=== PATIENT | female | born 1995 | race Caucasian/White ===

== ENCOUNTER 2019-03-21 05:53 | Inpatient (IN) ==
--- NOTE | 2019-03-21 06:18 | PROVIDER DOCUMENTATION ---
HPI-Neurological Disorder - General Chief Complaint: Seizure Stated Complaint: seizure Time Seen by Provider: 03/21/19 06:02 Source: family Unable to obtain history due to:: other (CP) Allergies/Adverse Reactions: Patient Allergies Allergy/AdvReac Type Severity Reaction Status Date / Time Iodinated Contrast- Oral and AdvReac RASH Verified 03/21/19 17:14 IV Dye lorazepam [From Ativan] AdvReac VOMITING Verified 03/21/19 07:06 morphine AdvReac SHORTNESS Verified 03/21/19 06:09 OF BREATH Home Medications: Home Medication List Medication Instructions Recorded Confirmed Last Taken Type Diazepam 2.5 mg PO HS 03/21/19 03/21/19 Unknown History Diazepam 10 mg Rectal Gel [Diastat 5 mg NM DIRECTED PRN PRN 03/21/19 03/21/19 Unknown History 10 mg Rectal Gel] Lamotrigine 300 mg PO BID 03/21/19 03/21/19 Unknown History Medroxyprogesterone Acetate 150 mg IM DIRECTED 03/21/19 03/21/19 Unknown History [Depo-Provera] - History of Present Illness-Neuro Nature of Presenting Problem: Patient has had a series of seizures tonight that is not unheard of, but unusual for her. SHe has a history of seizures. Mother is concerned about possible aspiration and the supposed cause of the seizure. It is almost time for her depomedrol shot that helps calm her brain. Severity: reports: moderate Onset/Duration: reports: just prior to arrival Timing: reports: gone now Context: reports: seizure activity Associated Symptoms: reports: seizures Similar Symptoms Previously?: Yes Recently seen or treated by another doctor?: No - Seizure First time to have a seizure?: No Witnessed seizure?: Yes How many seizure episodes?: 1 Episode Frequency: occasional episodes Status Epilepticus: No Character of Seizure: reports: generalized shaking all over Seizure related injury: none Review of Systems - Adult - REVIEW OF SYSTEMS - ADULT Constitutional: reports: no symptoms reported Eyes: reports: no symptoms reported Ears, Nose, Mouth & Throat: reports: no symptoms reported Cardiovascular: reports: no symptoms reported Respiratory: reports: no symptoms reported Gastrointestinal: reports: no symptoms reported Genitourinary: reports: no symptoms reported Musculoskeletal: reports: no symptoms reported Integumentary: reports: no symptoms reported Neurological: reports: see HPI, seizure Psychiatric: reports: no symptoms reported Past History - Adult - PAST MEDICAL HISTORY-ADULT Review of Records: reports: Old Records Reviewed, Nursing Assessment Review Physical Exam- Neurological - Physical Exam-Neuro Initial Vital Signs Reviewed: Yes General Appearance: no apparent distress, other (sleepy and post ictal) Eye Exam: bilateral eye: normal inspection, PERRL HENMT: normocephalic/atraumatic, moist mucous membranes Head Injury: no evidence of injury Neck: non-tender, full range of motion Respiratory: chest non-tender, normal breath sounds, crackles. negative: respiratory distress, decreased breath sounds, rhonchi, stridor, wheezing Cardiovascular: normal peripheral pulses, regular rate, rhythm Abdominal Exam: normal bowel sounds, non tender Lymphatic: no adenopathy Extremity: other (multiple contractures from CP) Integumentary: normal color, normal turgor Progress - PLAN OF CARE/RESULTS Progress/Plan/Lab Results: assumed care from dr. guzman, 23 y/o female cerebral palsy on exam, nasal flaring, increased work of breathing sat down bedside prolonged conversation with very helpful family in regards to patients baselin on 3 liters 02 here, no o2 requirement at home upon exam nasal flaring lungs with course rhonchi, no wheeze will add cxr, blood culture, lactate and nebs to current orders ddx includes but not limited to sepsis, pneumonia, aspiration anticipate admission ordered fluids and appropriate antibiotics due to patients 29kg weight, I confirmed with pharmacy the dose of zosyn Result Diagrams: 03/22/19 04:00 03/22/19 04:00 - EKG 1 Time of EKG reading by physician:: 06:40 EKG Read and Signed by:: Nancy Guzman EKG Interpretation (*Must complete 3 of following elements*): Abnormal Rate: 115 Rhythm: nsr QRS: normal NM Interval: normal ST Wave: normal Comments: rvh - XRAY 1 XRAY Study: Chest (EXAM: CHEST-PORTABLE 03/21/2019 HISTORY: cough, tachypnea TECHNIQUE: AP portable at 0718 COMMENT: There is severe rotoscoliosis of the lower thoracic spine with convexity to the left. The patient is rotated slightly to the right. There is slightly increased parahilar opacity on the left compared to 08/13/2014. The possibility of bronchopneumonia on the left cannot be excluded. IMPRESSION: Bronchopneumonia left upper and lower lobe. Electronically signed by Go Vega 03/21/2019 7:23 AM 03/21/19722 Interpreting Physician: oG Vega MD Dictated Date/Time: 03/21/19720 cc: Ankit Bell DO; Bernard Gao MD) - CONSULTS/PCP/HOSPITALIST Notification #1 *Consult/PCP/Hospitalist*: nneka Time Discussed: 07:45 Consult Disposition: Will see in ED Departure - Departure Date of Disposition Decision: 03/21/19 Time of Disposition Decision: 07:45 DIAGNOSIS: Hypoxia, Tachypnea Pneumonia Qualifiers: Pneumonia type: due to unspecified organism Laterality: left Lung location: unspecified part of lung Qualified Code(s): J18.9 - Pneumonia, unspecified organism Disposition: ADMITTED INPATIENT 09 Certified Medical Emergency: Emergent Condition: Stable - Critical Care Note This patient required my direct & personal management of CC.: Yes Total Time (mins): 40 Critical Care Statement: This patient required my direct personal management to treat or rule out processes, the absence of which, could potentiallly result in sudden, clinically significant life or limb threatening deterioration. Attestation - Physician/ YNES Attestation Patient care was provided by Advanced Practice Provider:: No The physician spent face to face time with patient:: No Advanced Practice Provider documentation review:: Supervising physician onsite and consulted in the evaluation and care of this patient. The physician did not have a face to face encounter with the patient.
[2019-03-21 06:50] LABS: URINE SOURCE CATH
[2019-03-21 06:55] LABS: UR EPITHELIAL CELLS >10 /HPF (<10); URINE BACTERIA 1+ /HPF; URINE RBC TNTC /HPF (<10); URINE WBC <10 /HPF (<10)
[2019-03-21 06:56] LABS: BILIRUBIN URINE NEGATIVE (NEGATIVE); BLOOD URINE MODERATE (NEGATIVE); COLOR YELLOW; GLUCOSE URINE 500 mg/dL (NEGATIVE); HEMATOCRIT 43.5 % (37.0-47.0); HEMOGLOBIN 13.8 g/dL (12.0-16.0); KETONE URINE 60 mg/dL (NEGATIVE); LEUKOCYTES URINE NEGATIVE (NEGATIVE); LYMPH# 0.19 X1000 (1.2-3.4); LYMPH% 3.7 % (20.5-51.1); MCH 26.5 PG (27-31); MCHC 31.7 g/dL (33-37); MCV 83.5 FL (81-99); MONO# 0.23 X1000 (0.11-0.59); MONO% 4.5 % (1.7-9.3); MPV 9.5 FL (7.4-10.4); NEUT# 4.68 X1000 (1.4-6.5); NEUT% 91.8 % (42.2-75.2); NITRITE URINE NEGATIVE (NEGATIVE); PH URINE 6.5; PLT 264 X1000 (130-400); PROTEIN URINE 100 mg/dL (NEGATIVE); RBC 5.21 XMIL (4.2-5.4); RDW 14.9 % (11.5-14.5); TURBIDITY URINE HAZY (CLEAR); UROBILINOGEN URINE 8 mg/dL (NORMAL)
[2019-03-21 07:06] LABS: AGAP 15; ALB/GLOB RATIO 1.3; ALBUMIN 4.4 g/dL (3.5-5.0); ALKALINE PHOSPHATASE 47 U/L (32-104); BUN 18 mg/dL (8-22); CHLORIDE 104 mmol/L (98-107); COSMO 290; CREATININE 0.5 mg/dL (0.5-0.9); ESTIMATED GFR > 60; GLUCOSE 192 mg/dL (70-104); GOT 16 U/L (10-30); GPT 18 U/L (10-36); SODIUM 142 mmol/L (136-145); TCO2 23 mmol/L (25-35); TOTAL BILIRUBIN 0.47 mg/dL (0.20-1.00); TOTAL PROTEIN 7.7 g/dL (6.3-8.3)
[2019-03-21] MEDS ORDERED: DUONEB (A & A) INH ONE (07:12)
--- NOTE | 2019-03-21 07:25 | Diag Imaging Result Doc PS360 ---
EXAM: CHEST-PORTABLE 03/21/2019 HISTORY: cough, tachypnea TECHNIQUE: AP portable at 0718 COMMENT: There is severe rotoscoliosis of the lower thoracic spine with convexity to the left. The patient is rotated slightly to the right. There is slightly increased parahilar opacity on the left compared to 08/13/2014. The possibility of bronchopneumonia on the left cannot be excluded. IMPRESSION: Bronchopneumonia left upper and lower lobe. Electronically signed by Go Vega 03/21/2019 7:23 AM
[2019-03-21] MEDS ORDERED: ZOSYN 3.375 GM in NS 50 ML IV ONE (07:38)
[2019-03-21 07:52] LABS: BE -0.5 mmoll (-2.0-2.0); BLOOD TYPE VENOUS; HCO3-(ACT) 24.5 mmoll (22-27); PCO2(98.6) 34 mmHg (40-60); PO2(98.6) 66 mmHg (30-55); SAMPLE BLOOD; SAO2 96.6 % (40.0-85.0); pH(98.6) 7.44 (7.32-7.43)
--- NOTE | 2019-03-21 07:52 | EKG Report ---
Test Performed on : 03/21/2019 06:07:26 AM Test Reason : HT Blood Pressure : / mmHG Vent. Rate : 115 BPM Atrial Rate : 115 BPM P-R Int : 132 ms QRS Dur : 082 ms QT Int : 248 ms P-R-T Axes : 062 145 046 degrees QTc Int : 343 ms Sinus tachycardia. Possible Left atrial enlargement Right axis deviation Possible Right ventricular hypertrophy Nonspecific T wave abnormality Abnormal ECG No previous ECGs available Unconfirmed Result
[2019-03-21] MEDS ORDERED: VANCOMYCIN IV PER PHARMACY MISC SCH (11:45)
[2019-03-21] MEDS: NS + KCL 20 MEQ 1,000 ML IV SCH ×2 (11:48→23:15)
[2019-03-21] MEDS ORDERED: ZANAFLEX PO SCH (11:56)
[2019-03-21] MEDS ORDERED: LAMICTAL PO SCH (11:56)
[2019-03-21] MEDS ORDERED: ZOFRAN IV PRN (11:56)
[2019-03-21] MEDS ORDERED: TYLENOL PO PRN (11:56)
[2019-03-21] MEDS ORDERED: ALBUTEROL NEB INH SCH (11:56)
[2019-03-21] MEDS ORDERED: NS NEB INH SCH (12:30)
--- NOTE | 2019-03-21 12:59 | EKG Report ---
Test Performed on : 03/21/2019 12:39:33 PM Test Reason : TACHYCARDIA Blood Pressure : / mmHG Vent. Rate : 150 BPM Atrial Rate : 150 BPM P-R Int : 104 ms QRS Dur : 082 ms QT Int : 348 ms P-R-T Axes : 000 174 082 degrees QTc Int : 549 ms Sinus tachycardia. with short IL Right axis deviation Pulmonary disease pattern Right ventricular hypertrophy Nonspecific ST abnormality Abnormal ECG When compared with ECG of 21-MAR-2019 06:07, (Unconfirmed) ST now depressed in Lateral leads T wave inversion no longer evident in Inferior leads Nonspecific T wave abnormality no longer evident in Lateral leads Confirmed by Mike STEVENSON, Bunny Yancey ([id number]) on 03/22/2019 6:25:02 AM
[2019-03-21 13:09] LABS: INR 1.19; PROTIME 15.3 Seconds (11.0-16.0)
[2019-03-21 13:10] LABS: PTT 31.8 Seconds (22.3-41.8)
[2019-03-21] MEDS: ZOSYN 2.25 GM in NS 50 ML IV SCH ×2 (13:36→20:10)
[2019-03-21] MEDS ORDERED: VANCOMYCIN 850 MG in NS 250 ML IV ONE (14:00)
--- NOTE | 2019-03-21 14:08 | HISTORY AND PHYSICAL ---
CHIEF COMPLAINT: Seizure with hypoxia. HISTORY OF PRESENT ILLNESS: The patient is a 23-year-old white female followed in my medical practice and also followed by neurologists to include Dr. Cummins and . 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 She had been adopted by her very attentive parents at a young age, and she has a chronic history of seizure disorder. Apparently, the seizures are about 4 times a month, and they respond to Valium. She had a seizure this morning and they gave her the Valium and the seizure responded, but they thought she might have aspirated and she had some hypoxia and was brought to the ER for further evaluation. Indeed, her O2 saturation her in the 80s in the emergency room. MEDICATIONS: Prior to admission are Zanaflex 4 mg p.o. daily. Diazepam rectal gel 5 mg p.r.n. seizure. Lamotrigine 25 mg 12 tablets by mouth twice a day. Depo-Provera 150 mg IM every 2 months per her [employer]. Diazepam 2.5 mg p.o. at bedtime. Baclofen pump. ALLERGIES: Morphine. PAST MEDICAL HISTORY: 1. Cerebral palsy with schizencephaly. 2. In utero CVA. 3. Adopted child. 4. Chronic spasticity with contractures of the arms and hands and minimally at the feet. 5. Severe speech impairment, but patient able to speak some in sentences. 6. Seizure disorder. 7. History of aspiration pneumonias. PAST SURGICAL HISTORY: 1. Baclofen pump implantation, right low abdomen with patient having malfunction on 1 occasion with prominent symptomatology of withdrawal after that occurred and required hospitalization in [place] on that occasion. 2. Hamstring and heel cord clipping surgeries for contractures of her legs. FAMILY HISTORY: Patient is adopted. SOCIAL HISTORY: The patient lives with her adoptive parents, who are extremely attentive in her care. REVIEW OF SYSTEMS: Notably patient saw Dr. cummins, pediatric neurologist in [facility], in August. PHYSICAL EXAMINATION: GENERAL: Debilitated-appearing white female. She was alert earlier this morning. VITAL SIGNS: Some mild tachycardia was present earlier, but has increased now into the 140-150 range, sinus tachycardia. SKIN: No active breakdown. GENERAL: Patient rolls eyes back, but does not appear to be having seizure. She is attentive and responsive to her mother. Does moan slightly on occasion, but it appears to be responsive to her environment. Prominent contractures to her hands and wrists and to the arms, minimal to the distal feet with downgoing of the toes, but her legs are straight. She is frail appearing. OROPHARYNX: No redness. NECK: No LA or TMG. CARDIOVASCULAR: Tachycardia. No appreciable murmur. LUNGS: Crackles, left lung, fairly prominent. Right lung is fairly clear. ABDOMEN: Soft, nontender, nondistended. Baclofen pump, right low abdomen. EXTREMITIES: No calf tenderness, cords, or edema can be palpated. NEUROLOGIC: Patient is responsive to her mother, looks about. DIAGNOSTIC STUDIES: White count 5.1, hemoglobin 13.8, hematocrit 43.5, MCV 83, platelets 264,000, neutrophils 92, lymphocytes 3.7, monocytes 4.5. PT 15.3, INR 1.19, PTT 31.8. Venous blood gas was showing pH 7.44, pCO2 of 34, PO2 of 66, HCO3 of 24.5, lactate 2.5. Sodium 142, potassium 3.0, chloride 104, CO2 of 23, BUN 18, creatinine 0.5, glucose 192, calcium 9.0, total bilirubin 0.47, AST 16, ALT 18, alkaline phosphatase 47, total protein 7.7, albumin 4.4, plasma lactate 2.2. Urinalysis is a catheter specimen shows moderate blood, too numerous to count RBCs, white blood cells less than 10, epithelial cells greater than 10, 1+ bacteria. Chest x-ray reveals bronchopneumonia, left upper and lower lobes. ASSESSMENT: 1. Left upper and lower lobe pneumonia. 2. Hypoxia associated with #1 with acute respiratory failure. 3. Elevated lactate, rule out sepsis. 4. Sinus tachycardia, pronounced. 5. Seizure disorder. 6. Cerebral palsy with schizencephaly. 7. Baclofen pump in place. PLAN: We will admit the patient. She has received Zosyn in the emergency room. We will continue that at 2.25 g IV q.8 h. We will add vancomycin for coverage. Blood cultures x2 and urine culture have been obtained. We will place her in the ICU. Check EKG. Supplement her oxygen. She apparently had a 2nd seizure, and so we will get Dr. Bedoya to see the patient and get Dr. Vidal, medical charge entry specialist, to see her as well. Continue her home medications. cc: Bernard Gao MD MTDDanae
[2019-03-21] MEDS ORDERED: CEREBYX IV ONE (14:45)
--- NOTE | 2019-03-21 14:53 | Diag Imaging Result Doc PS360 ---
EXAM: CT ANGIOGRM PULMONARY ARTERIES 03/21/2019 HISTORY: r/o PE TECHNIQUE: This exam was performed using automated exposure control, adjustment of mA or kV according to patient size, and/or use of iterative reconstruction technique. COMMENT: 3-D MIPS were performed. There are no previous studies. There is severe scoliosis. There is some motion artifact. There are no filling defects demonstrated in the pulmonary arteries. The aorta is not distended. There is no evidence of dissection. The stomach is fairly distended with fluid and there is apparent reflux into the esophagus which is also distended with fluid below the level of the rafael. There is ill-defined opacity throughout much of the left lung with volume loss. This is particularly true in the posterior medial left lower lobe where there are air bronchograms and densely consolidated parenchyma. There are no fluid collections. IMPRESSION: No evidence of pulmonary emboli. Left-sided pneumonia as previously reported. Distended fluid containing stomach and esophagus. The possibility of aspiration should be considered. Electronically signed by Go Vega 03/21/2019 2:51 PM
[2019-03-21] MEDS ORDERED: CEREBYX 500 MG in NS 50 ML IV ONE (15:00)
--- NOTE | 2019-03-21 15:40 | CONSULTATION ---
DATE OF CONSULTATION: 03/21/2019 HISTORY OF PRESENT ILLNESS: Ms. Len Galdamez is in ICU number 1. Ms. 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 History is taken from her attentive parents and review of the hospital admission notes. She began having seizures in infancy. Seizures were controlled with lamotrigine monotherapy through product demonstrator to the point that she would sometimes have a year or longer without seizure. In puberty, seizures became more frequent to the point that she would have as many as 40 episodes in a month. These were typically partial seizures. Mother reports lamotrigine was continued and several other AEDs were added without satisfactory result. She believes she lost appetite with Banzel. Mother reports reduced white count and hair loss with oxcarbazepine. There might have been personality change with levetiracetam. Eventually, the lamotrigine dose was increased, Banzel was stopped, and she added diazepam 2.5 mg every night at bedtime. Seizure control has seemed improved with Depo-Provera shots provided every 2 months. With this management, she has had much, much fewer recognized seizures. Typically, mother reports she will have "cluster" of 2 or 3 seizures once every few weeks. Parents believe they can sometimes recognize seizure approaching because of the appearance of the patient's eyes. She had a few seizures recently and presents today with concern for aspiration. She will not be able to swallow pills by mouth in the short term. Mother reports patient tolerated fosphenytoin in the past, but it might not have been completely effective. This was several years ago when seizures were much more frequent. Mother does not recall the patient having trial with Briviact, Vimpat, valproic acid, or any parental seizure medicine other than fosphenytoin. She has used diazepam 2.5 mg oral dose each night with occasional extra dose. She has used diazepam 5 mg rectal dose p.r.n. with benefit. She has used midazolam nasally p.r.n., and mother reports benefit has been inconsistent with that product. Mother does not recall Onfi, Fycompa, felbamate. PHYSICAL EXAMINATION: On exam, Ms. Galdamez is supine, still, not attentive. Both arms are contracted at the elbows and wrists. There is not meningismus. There is full lateral eye movement with passive head turning. Facial motility appears diminished, but symmetric. Plantar response is silent bilaterally. Tone is reduced in the legs bilaterally. She did not respond to my attempts to get her attention. IMPRESSION AND PLAN: Static encephalopathy, longstanding seizure disorder, recently relatively infrequent seizures. Unfortunately, she may not be able to swallow pills by mouth for the short term. In this setting, after discussion with mother, we have decided to add fosphenytoin. At least, we know she is not allergic to that. Further plans will depend on her clinical course. If we need to add a second parenteral antiepileptic drug to phenytoin, we might use Briviact or Vimpat. These are available on the formulary here. I hope she will recover quickly and be able to resume swallowing pills by mouth and then we can start back on the 300 mg b.i.d. lamotrigine dose, which was her preadmission dose. I think it would be reasonable to check lamotrigine serum level whenever blood is drawn. We can also follow phenytoin levels. I do not think EEG would ticket dispenser changer now. I do not think further brain imaging is necessary now. I encouraged parents to keep her followup with the [facility]. I will be glad to provide anything in [place] that is recommended by [facility] that would save family a trip to [place]. Thanks for asking Neurology to see Ms. Galdamez. cc: MD Bernard Avery III, MD MTDD
[2019-03-21] MEDS: XOPENEX NEB INH SCH ×3 (16:12→23:21)
--- NOTE | 2019-03-21 16:26 | Diag Imaging Result Doc PS360 ---
EXAM: CHEST-PORTABLE 03/21/2019 HISTORY: NGT placement TECHNIQUE: AP portable upright at 1605 COMMENT: There is an NG tube with its tip below the diaphragm. The appearance of the chest is otherwise unchanged since the previous study at 0718. IMPRESSION: NG tube in the stomach. Electronically signed by Go Vega 03/21/2019 4:24 PM
[2019-03-21] MEDS: DESOWEN TOP SCH ×2 (16:54→20:14)
[2019-03-21] MEDS: OFIRMEV 1000 MG/ISOTONIC SOLN 1,000 MG/100 ML BOTTLE IV PRN (18:06)
[2019-03-21] MEDS: PROTONIX IV SCH (20:11)
--- NOTE | 2019-03-21 23:01 | PULMONOLOGY CONSULTATION ---
DATE: 03/21/2019 HISTORY OF PRESENT ILLNESS: Ms. Galdamez is a 23-year-old female who has cerebral palsy and schizencephaly. The patient has had frequent seizure disorder. The patient has had relatively few infections and hospitalizations. She does have a baclofen pump. The patient had seizures last evening, which typically respond to Valium; however, she subsequently had hypoxemia and has had aspiration in the past. The patient presented to the emergency room and has had some progressive decompensation during the day. The patient was reviewed electronically earlier in the day, and after speaking with the nurse, it was my recommendation that we proceed with intubation. The patient's mother requested that intubation be delayed unless it was absolutely necessary for impending . The patient's respiratory status has slowly improved through the day. PAST MEDICAL HISTORY: 1. Schizencephaly with cerebral palsy. 2. Seizure disorder. 3. Learning delay. 4. Chronic spasticity requiring a baclofen pump with 1 baclofen pump failure. 5. History of aspiration pneumonia associated with baclofen pump replacement. SOCIAL HISTORY: The patient lives with adoptive parents. Her mother is known to the family. PHYSICAL EXAMINATION: General: Reveals a frail, thin white female with a BMI of 12.7. Vital signs: She has a respiratory rate of 38 to 40, heart rate 138, oxygen saturation 100% on non- rebreather. HEENT: Pupils are equal and reactive. Oropharynx appears clear. Neck: Supple. Chest: Reveals significant scoliosis with decreased volume of the left hemithorax. There are rhonchi bilaterally. Cardiac Exam: Increased rate, regular rhythm. Abdomen: Soft. Extremities: Reveal some contractures. LABORATORIES: Arterial blood gas at 7:44 this morning: pH 7.44, pCO2 of 34, PO2 of 66. White blood count 5.1, hemoglobin 13.8, platelet 264,000. Sodium 142, potassium 3.0, chloride 104, bicarbonate 23, BUN 18, creatinine 0.5, lactate 2.2. IMAGING: CT pulmonary angiogram reveals no evidence of pulmonary emboli. Significant kyphoscoliosis. Stomach is distended with reflux into the esophagus. Left-sided pneumonia. IMPRESSION: A 23-year-old with schizencephaly and cerebral palsy with: 1. Acute on chronic seizures. 2. Acute hypoxemic respiratory failure. 3. Aspiration pneumonia. 4. Kyphoscoliosis. 5. Probable contrast induced reaction with significant skin erythema. RECOMMENDATIONS: 1. Continue following patient for impending respiratory arrest/delay intubation at the request of the mother. Clinically, she appears to be improving and hopefully intubation will be avoided. 2. Continue broad-spectrum antibiotics. 3. Continue gastric acid suppression. 4. Place NG tube and drain stomach to prevent additional aspiration. 5. Overall prognosis is guarded. TIME SPENT WITH CRITICAL CARE MANAGEMENT: 1 hour. cc: MD Bernard dAorno MD
[2019-03-22] MEDS ORDERED: CEREBYX IV SCH
[2019-03-22] MEDS: XOPENEX NEB INH SCH ×6 (02:37→23:49)
[2019-03-22 04:19] LABS: ALLEN TEST NO; BE -0.3 mmoll (-3.0-3.0); BLOOD TYPE ARTERIAL; HCO3-(ACT) 24.7 mmoll (20.0-26.0); METHB 1.2 % (0.0-1.5); O2(CT) 17.6 mL/dL (15.0-23.0); O2HB 97.7 % (95.0-99.0); PO2(98.6) 368 mmHg (60-100); SAMPLE BLOOD; SAO2 99.4 % (95.0-100.0); THB 12.1 g/dL (11.5-17.4); pH(98.6) 7.31 (7.35-7.45)
[2019-03-22 04:20] LABS: MODALITY HIGH FLOW NASAL CAN; PCO2(98.6) 53 mmHg (35-45)
[2019-03-22 04:22] LABS: BASO# 0.01 X1000 (0.0-0.2); BASO% 0.1 % (0.0-0.8); IMM GRAN# 0.06 X1000 (0.0-0.04); IMM GRAN% 0.8 % (0.0-0.5); LYMPH# 1.65 X1000 (1.2-3.4); LYMPH% 23.2 % (20.5-51.1); MCHC 31.6 g/dL (33-37); MCV 85.6 FL (81-99); MONO# 0.27 X1000 (0.11-0.59); MONO% 3.8 % (1.7-9.3); MPV 9.3 FL (7.4-10.4); NEUT# 5.13 X1000 (1.4-6.5); NEUT% 72.1 % (42.2-75.2); PLT 238 X1000 (130-400); RBC 4.44 XMIL (4.2-5.4); RDW 14.9 % (11.5-14.5); WBC 7.12 X1000 (4.8-10.8)
[2019-03-22 04:40] LABS: LYMPHS 23 % (21-51); MONO 4 % (1-9); SEGS 73 % (42-75)
[2019-03-22 04:52] LABS: AGAP 10; BUN 11 mg/dL (8-22); CALCIUM 8.6 mg/dL (8.8-10.2); CHLORIDE 109 mmol/L (98-107); COSMO 283; CREATININE 0.2 mg/dL (0.5-0.9); ESTIMATED GFR > 60; GLUCOSE 114 mg/dL (70-104); POTASSIUM 3.8 mmol/L (3.5-5.1); SODIUM 142 mmol/L (136-145); TCO2 23 mmol/L (25-35)
[2019-03-22] MEDS: ZOSYN 2.25 GM in NS 50 ML IV SCH ×3 (05:28→20:18)
--- NOTE | 2019-03-22 06:41 | Diag Imaging Result Doc PS360 ---
CHEST-PORTABLE - 03/22/2019 INDICATION: dyspnea COMPARISON: 03/21/2019 FINDINGS: Stable severe scoliosis. Stable nasogastric tube in good position. Stable cardiomegaly and mild pulmonary vascular congestion. Stable extensive central interstitial infiltrates. IMPRESSION: No change from prior. Electronically signed by Isaac Mathis 03/22/2019 6:39 AM
[2019-03-22] MEDS: NS + KCL 20 MEQ 1,000 ML IV SCH ×2 (08:54→09:37)
[2019-03-22] MEDS: DESOWEN TOP SCH (08:54)
[2019-03-22] MEDS: CEREBYX IV SCH ×3 (11:52)
[2019-03-22] MEDS: NS IV SCH ×3 (11:52)
--- NOTE | 2019-03-22 13:00 | PROGRESS NOTE ---
DATE: 03/22/2019 SUBJECTIVE: Ms. Galdamez has not had clinically recognized seizure. She has been calm. The skin changes following CT dye infusion yesterday have resolved. Phenytoin level is 11.6 after loading with 500 mg of fosphenytoin and beginning fosphenytoin 100 mg IV q. 12 hour maintenance dose. Lamotrigine serum level is pending. In light of her stable course, I do not think we need to make any changes from Neurology standpoint. If she has evidence of seizure, we can check phenytoin level, increase the dose if needed, add a second AED with parenteral options including Briviact, Vimpat, Depacon. I hope she will continue to improve and will soon be able to resume medications by mouth. The lamotrigine serum level was drawn an uncertain number of hours after her last oral dose, and may not accurately reflect her steady state, but will still be helpful information when it is eventually reported. Thanks for asking Neurology to see Ms. Galdamez. cc: MD Bernard Avery III, MD MTDD
[2019-03-22] MEDS: VANCOMYCIN 700 MG in NS 250 ML IV SCH (13:29)
[2019-03-22] MEDS ORDERED: BLISTEX MEDICATED BERRY LIP BALM TOP PRN (13:31)
--- NOTE | 2019-03-22 19:07 | PROGRESS NOTE ---
DATE: 03/22/2019 SUBJECTIVE: The patient remains in the ICU. She is on 100% high-flow oxygen. She looks more comfortable than she did on a brief assessment this morning. She has had some off-and-on elevated respiratory rate, but that seems to be calming currently. OBJECTIVE: T-max in the low 99 degrees range. Blood pressure is acceptable at 106/77, O2 saturation is 99% to 100%. CV: Tachycardia; heart rate 112 currently. Regular rate and rhythm. Lungs: Rhonchi, left mid to upper lung field, otherwise clear. Intake and output: 2397 in, 250 out. Patient without catheter in place, has diapers in place. Gastric output per NG tube 250 mL out. Abdomen nondistended. Extremities: Contractures of her arms prominent. Prominent scoliosis. Rash after CT pulmonary angiogram yesterday is now resolved. Neurologic: The patient not able to respond to family members, still remains obtunded. She normally can respond to her family. LABORATORY DATA: White count is 7.12, hemoglobin 12, platelets 238,000. ABG this morning revealed pH 7.31, pCO2 of 53, pO2 of 368. Sodium 142, potassium 3.8, chloride 109, CO2 is 23, BUN 11, creatinine 0.2. Urine culture and blood cultures thus far are showing no growth. DIAGNOSTIC DATA: Chest x-ray this a.m. revealed scoliosis, severe. NG tube in place in good position. Stable cardiomegaly. Mild pulmonary vascular congestion. Extensive central interstitial infiltrates, unchanged from previous chest x-ray. CT pulmonary angiogram yesterday revealed no pulmonary embolus. Prominent gastric and esophageal distention with fluid. NG tube placed after that. Left-sided pneumonia noted. ASSESSMENT: 1. Left upper lobe and lower lobe pneumonia, thought from aspiration. 2. Gastric dysmotility. 3. Acute respiratory failure with hypoxia secondary to #1. 4. Elevated lactate, rule out sepsis. 5. Sinus tachycardia. 6. Seizure disorder, stable on anticonvulsant per Dr. Bedoya. 7. Cerebral palsy with schizencephaly. 8. Baclofen pump in place due to contractures, stable. 9. CT contrast dye rash, resolved. PLAN: Continue to follow the blood cultures and urine culture. Continue Zosyn and IV vancomycin. She is on the fosphenytoin for seizure control. She is on IV Protonix. NG tube remains in place. She is on IV fluids, and we had reduced the dose some this morning from 100 mL/h to 65 mL/h. Now that the rash from the CT IV contrast has resolved, we will stop the desonide cream. Repeat labs and x-ray in the morning. Continue supportive treatments. cc: Bernard Gao MD
[2019-03-22] MEDS: PROTONIX IV SCH (19:26)
--- NOTE | 2019-03-22 23:19 | PULMONOLOGY PROGRESS NOTE ---
DATE: 03/22/2019 SUBJECTIVE: The patient's eyes are open. She has mild to moderate work of breathing, but it appears less than last evening. OBJECTIVE: Heart rate 124, respiratory rate 29, oxygen saturation 98%. HEENT: Pupils appear equal. Oropharynx appears clear, but dry. Neck is supple. Chest reveals coarse rhonchi bilaterally. Cardiac exam: S1, S2. Abdomen is soft. Extremities are unchanged. DIAGNOSTIC DATA: Chest x-ray reveals central infiltrates; stable cardiomegaly with mild vascular congestion. LABORATORY DATA: White blood count 7.12, hemoglobin 12.0, platelet count 238,000. Arterial blood gas pH 7.31, pCO2 of 53, pO2 of 368. Chemistry: Sodium 142, potassium 3.8, chloride 109, bicarbonate 23, BUN 11, creatinine 0.2. Microbiology reveals no new culture data. IMPRESSION: A 23-year-old with: 1. Aspiration pneumonia. 2. Acute hypoxemic respiratory failure. 3. Tachycardia. 4. Seizure disorder. 5. Schizencephaly with cerebral palsy. DISCUSSION: A 23-year-old with problems outlined above. Clinically she appears to have less work of breathing today, but it is not clear how much reserve she has. PLAN: 1. Continue antibiotics. 2. Continue ICU monitoring. 3. Continue oxygen for hypoxemic respiratory failure. 4. Follow up for possible respiratory decline requiring intubation and mechanical ventilation. cc: MD Bernard Adorno MD
[2019-03-23] MEDS: CEREBYX IV SCH ×3 (00:33→23:39)
[2019-03-23] MEDS: NS IV SCH ×3 (00:33→23:39)
[2019-03-23] MEDS: NS + KCL 20 MEQ 1,000 ML IV SCH ×2 (00:45→15:40)
[2019-03-23] MEDS: XOPENEX NEB INH SCH ×6 (03:35→23:06)
[2019-03-23 06:01] LABS: HEMOGLOBIN 12.4 g/dL (12.0-16.0); MCH 26.9 PG (27-31); MCV 86.8 FL (81-99); PLT 277 X1000 (130-400); RBC 4.61 XMIL (4.2-5.4); WBC 7.98 X1000 (4.8-10.8)
[2019-03-23 06:02] LABS: BASO# 0.01 X1000 (0.0-0.2); BASO% 0.1 % (0.0-0.8); LYMPH# 1.09 X1000 (1.2-3.4); LYMPH% 13.7 % (20.5-51.1); MONO# 0.29 X1000 (0.11-0.59); MONO% 3.6 % (1.7-9.3); MPV 9.2 FL (7.4-10.4); NEUT# 6.59 X1000 (1.4-6.5); NEUT% 82.6 % (42.2-75.2)
[2019-03-23 06:23] LABS: AGAP 13; BUN 5 mg/dL (8-22); CALCIUM 8.6 mg/dL (8.8-10.2); CHLORIDE 107 mmol/L (98-107); COSMO 266; CREATININE 0.4 mg/dL (0.5-0.9); ESTIMATED GFR > 60; GLUCOSE 101 mg/dL (70-104); POTASSIUM 4.1 mmol/L (3.5-5.1); SODIUM 134 mmol/L (136-145); TCO2 14 mmol/L (25-35)
[2019-03-23] MEDS: ZOSYN 2.25 GM in NS 50 ML IV SCH ×3 (06:37→21:00)
--- NOTE | 2019-03-23 07:10 | Diag Imaging Result Doc PS360 ---
EXAM: CHEST-PORTABLE 03/23/2019 HISTORY: dyspnea TECHNIQUE: AP portable at 0516 COMMENT: There is ill-defined opacity in the parahilar regions particularly in the left lower lobe. This appearance has not changed appreciably since the previous study of 03/22/2019. The NG tube remains with its tip in the stomach. IMPRESSION: Pulmonary edema and/or pneumonia. Electronically signed by Go Vega 03/23/2019 7:07 AM
--- NOTE | 2019-03-23 11:50 | PROGRESS NOTE ---
DATE: 03/23/2019 Ms. Galdamez has not had any clinically apparent seizure. Mother reports no seizures recognized. She may be a little bit stronger with breathing. She seems to be tolerating current phenytoin monotherapy. I do not have any new suggestion from neurology standpoint today. Would plan to resume lamotrigine at her preadmission dose when she is consistently able to swallow pills. Thanks for asking Neurology to see Ms. Galdamez. cc: MD Bernard Avery III, MD MTDD
[2019-03-23] MEDS: VANCOMYCIN 700 MG in NS 250 ML IV SCH (14:17)
[2019-03-23] MEDS: PROTONIX IV SCH (19:28)
[2019-03-23] MEDS: SODIUM CHLORIDE 0.9% INJ SCH (19:28)
--- NOTE | 2019-03-23 23:11 | PULMONOLOGY PROGRESS NOTE ---
DATE: 03/23/2019 SUBJECTIVE: The patient is arousable. She appears slightly more comfortable than yesterday evening. She remains on high-flow oxygen. OBJECTIVE: The patient has been afebrile for the last 24 hours. Blood pressure 112/72, heart rate 123, respiratory rate 32, oxygen saturation 100%.HEENT: Pupils are equal and reactive. Oropharynx appears clear. Neck is supple. Chest reveals coarse rhonchi bilaterally. Cardiac exam: S1, S2. Abdomen is soft. Extremities reveal no significant edema, but she does have significant muscle wasting. DIAGNOSTIC DATA: Chest x-ray reveals continued infiltrate, most prominent in the left lung. LABORATORY DATA: No new culture data. Sodium 134, potassium 4.1, chloride 107, bicarbonate 14, anion gap 13, BUN 5, creatinine 0.4. White blood count 7.98, hemoglobin 12.4, platelet count 277,000. IMPRESSION: A 23-year-old with: 1. Aspiration pneumonia. 2. Acute hypoxemic respiratory failure. 3. Schizencephaly with cerebral palsy. 4. Tachycardia. 5. Protein-calorie malnutrition. RECOMMENDATIONS: 1. Initiate Clinimix pending decrease in respiratory failure, at which time she can be reinitiated on p.o. intake or NG feedings. 2. Continue oxygenation with high-flow oxygen. 3. Continue current antibiotic regimen. 4. Continue ICU monitoring until oxygen requirements and tachycardia improve. cc: MD Bernard Adorno MD
[2019-03-24] MEDS: XOPENEX NEB INH SCH ×6 (03:09→22:56)
[2019-03-24 04:06] LABS: ALLEN TEST YES; BE -18.7 mmoll (-3.0-3.0); BLOOD TYPE ARTERIAL; HCO3-(ACT) 10.3 mmoll (20.0-26.0); METHB 1.2 % (0.0-1.5); O2(CT) 17.2 mL/dL (15.0-23.0); O2HB 96.5 % (95.0-99.0); PCO2(98.6) 30 mmHg (35-45); PO2(98.6) 104 mmHg (60-100); SAMPLE BLOOD; SAO2 98.9 % (95.0-100.0); THB 12.6 g/dL (11.5-17.4)
[2019-03-24 04:07] LABS: MODALITY HIGH FLOW NASAL CAN
[2019-03-24 04:14] LABS: pH(98.6) 7.11 (7.35-7.45)
[2019-03-24] MEDS: CLINIMIX E 4.25%-5% SOLUTION 1,000 ML IV SCH ×2 (04:58→11:56)
[2019-03-24] MEDS: ZOSYN 2.25 GM in NS 50 ML IV SCH ×3 (04:59→20:27)
[2019-03-24] MEDS ORDERED: SODIUM BICARBONATE 8.4% IV PUSH ONE (05:00)
[2019-03-24] MEDS ORDERED: SODIUM BICARBONATE 8.4% 100 MEQ in D5W 1,000 ML IV SCH (05:15)
[2019-03-24 06:12] LABS: BASO# 0.02 X1000 (0.0-0.2); BASO% 0.2 % (0.0-0.8); EOS# 0.01 X1000 (0.0-0.7); EOS% 0.1 % (0.0-10.0); HEMATOCRIT 38.8 % (37.0-47.0); IMM GRAN# 0.04 X1000 (0.0-0.04); IMM GRAN% 0.3 % (0.0-0.5); LYMPH# 0.83 X1000 (1.2-3.4); LYMPH% 6.5 % (20.5-51.1); MCH 26.6 PG (27-31); MCHC 30.9 g/dL (33-37); MONO# 0.43 X1000 (0.11-0.59); MONO% 3.4 % (1.7-9.3); MPV 9.9 FL (7.4-10.4); NEUT% 89.5 % (42.2-75.2); PLT 269 X1000 (130-400); RBC 4.51 XMIL (4.2-5.4); RDW 15.1 % (11.5-14.5); WBC 12.83 X1000 (4.8-10.8)
[2019-03-24 06:24] LABS: ESTIMATED GFR > 60
[2019-03-24 06:30] LABS: AGAP 18; BUN 3 mg/dL (8-22); CALCIUM 8.2 mg/dL (8.8-10.2); CHLORIDE 111 mmol/L (98-107); COSMO 273; CREATININE 0.4 mg/dL (0.5-0.9); GLUCOSE 116 mg/dL (70-104); POTASSIUM 3.6 mmol/L (3.5-5.1); SODIUM 138 mmol/L (136-145); TCO2 9 mmol/L (25-35)
[2019-03-24 06:50] LABS: LYMPHS 8 % (21-51); MONO 3 % (1-9); SEGS 89 % (42-75)
--- NOTE | 2019-03-24 07:26 | Diag Imaging Result Doc PS360 ---
EXAM: CHEST-PORTABLE INDICATION: dyspnea TECHNIQUE: One view COMPARISON: 03/23/2019 FINDINGS: The NG tube is in stable position. Ill-defined opacities in the perihilar regions are approximately stable. The left lower lobe opacity seen on previous studies is stable. This may actually represent chronic atelectasis related to volume loss from severe scoliosis. No new consolidation is identified. Cardiac silhouette is stable. IMPRESSION: Stable chest. Electronically signed by Kwan Salazar 03/24/2019 7:23 AM
[2019-03-24 08:05] LABS: ALLEN TEST NO; BE -5.9 mmoll (-3.0-3.0); BLOOD TYPE ARTERIAL; HCO3-(ACT) 20.3 mmoll (20.0-26.0); METHB 1.5 % (0.0-1.5); O2(CT) 14.6 mL/dL (15.0-23.0); O2HB 96.2 % (95.0-99.0); PCO2(98.6) 31 mmHg (35-45); PO2(98.6) 88 mmHg (60-100); SAMPLE BLOOD; SAO2 101.9 % (95.0-100.0); THB 10.7 g/dL (11.5-17.4); pH(98.6) 7.38 (7.35-7.45)
[2019-03-24 08:06] LABS: MODALITY HIGH FLOW NASAL CAN
--- NOTE | 2019-03-24 09:06 | PROGRESS NOTE ---
DATE: 03/23/2019 SUBJECTIVE: Patient remains in ICU. She appears more comfortable with her breathing overall. No major changes. Nurses have noted a little bright red blood in the NG aspirate. OBJECTIVE: T-max 99.4 degrees. Vital signs stable. Cardiovascular:Regular rate and rhythm. Lungs: Mild rhonchi left upper lung field otherwise CTA. Abdomen: Soft, non distended. Extremities: No edema. Contractures to arms in wrists and hands noted. Neuro: Patient is arousable. LABORATORY DATA: White count 7.9, hemoglobin 12.4, platelets 277,000. Sodium 134, potassium 4.1, chloride 107, CO2 14, BUN 5, creatinine 0.4, calcium 8.6. Urine culture and blood cultures remain negative. ASSESSMENT: 1. Left upper lobe and lower lobe pneumonia, thought related to aspiration. 2. Gastric dysmotility. 3. Acute respiratory failure with hypoxia secondary to #1. 4. Elevated lactate, rule out sepsis. 5. Tachycardia, mildly improved. 6. NG tube aspirate concerning for some blood, possibly just irritation from the nostril on the left. 7. Seizure disorder, stable on anticonvulsants per Dr. Bedoya. 8. Cerebral palsy with schizencephaly. 9. Baclofen pump due to contractures. 10. CT contrast dye rash has now resolved. PLAN: Continue IV Zosyn and vancomycin and Xopenex nebulizer treatment. She is on fosphenytoin for seizure control per Dr. Bedoya. Continue IV Protonix and will Gastroccult NG tube aspirate. Follow x-rays, labs and ABGs tomorrow. cc: Bernard Gao MD
[2019-03-24] MEDS: NS IV SCH (11:56)
[2019-03-24] MEDS: CEREBYX IV SCH (11:56)
--- NOTE | 2019-03-24 12:03 | PROGRESS NOTE ---
DATE: 03/24/2019 She is sleeping now. Discussed with father at the bedside. There has not been any clinically recognized seizures. She seems to be a little bit improved otherwise. I do not have any new suggestions. Would continue fosphenytoin at current dose, follow clinically, resume oral lamotrigine at her preadmission dose when she is able to swallow. Thanks for asking Neurology to see Ms. Galdamez. cc: MD Bernard Avery III, MD MTDD
[2019-03-24 13:01] LABS: INR 1.18; PROTIME 15.2 Seconds (11.0-16.0)
[2019-03-24] MEDS ORDERED: NS 250 ML ONE (13:34)
[2019-03-24] MEDS: VANCOMYCIN 1,000 MG in NS 250 ML IV SCH (13:56)
--- NOTE | 2019-03-24 17:53 | PROGRESS NOTE ---
DATE: 03/24/2019 SUBJECTIVE: Patient remains on high-flow oxygen in the ICU. He has been able to be reduced to 35% by high-flow. She has had no seizure activity and appears comfortable. She did have a PICC line placed during the day today as her IV access began to wean. She is on Clinimix per Dr. Vidal now for nutrition. She received some bicarbonate as well per Dr. Vidal. OBJECTIVE: Vital signs: T-max 99.5 degrees, pulse 119, respirations 24 to 28, blood pressure 128/89, O2 saturation 92% to 95%. Cardiovascular: Tachycardia, regular rhythm. Lungs: Mild rhonchi left upper lung field otherwise CTA. Abdomen: Soft, nontender, nondistended. Active bowel sounds. Musculoskeletal: Contractures and muscle wasting noted to the arms. Muscle wasting noted to the lower extremities prominently. She is arousable but appears to be resting comfortably most of the time. LABORATORY DATA: White count is up to 12.8, hemoglobin 12, platelets 269,000, neutrophils 89%, lymphocytes 6.5. ABG on 40% by high-flow nasal cannula oxygen shows pH 7.38, pCO2 31, pO2 88, HC03 28, O2 saturation 101.9. BMP shows sodium of 138, potassium 3.6, chloride 111, CO2 9, BUN 3, creatinine 0.4, calcium 8.2. Urine culture and blood cultures remain negative. Again yesterday Gastroccult was positive, but that appears due to irritation from the nostril on the left, and she appeared to have no lamin GI bleeding and hemoglobin remained stable and normal at 12.0 on IV PPI. ASSESSMENT: 1. Left upper lobe and left lower lobe pneumonia, thought secondary to aspiration. 2. Gastric dysmotility. 3. Acute respiratory failure with hypoxia, seeming to improve gradually on high-flow nasal cannula oxygen. 4. Tachycardia, stable. 5. NG tube aspirate positive for blood but with no signs of active gastrointestinal bleeding, likely this is related to irritation of the mucosa, likely of the nostril. 6. Seizure disorder, stable on IV fosphenytoin per Dr. Bedoya. 7. Cerebral palsy with schizencephaly. 8. Baclofen pump in place longstanding. PLAN: Continue IV Zosyn and vancomycin and Xopenex nebulizer treatments and oxygen. Continue fosphenytoin per Dr. Bedoya's recommendations and switching back to her Lamictal at doses she was on at home once she is able to tolerate p.o. Continue IV Protonix. PICC line in place now for better IV access and patient receiving Clinimix for nutrition. Dr. Laird will be on for me this weekend to follow the patient the next 2 days. cc: Bernard Gao MD
[2019-03-24] MEDS: PROTONIX IV SCH (20:27)
[2019-03-25] MEDS: CEREBYX IV SCH ×2 (01:03→12:03)
[2019-03-25] MEDS: NS IV SCH ×2 (01:03→12:03)
[2019-03-25] MEDS: CLINIMIX E 4.25%-5% SOLUTION 1,000 ML IV SCH ×2 (01:04→14:20)
[2019-03-25] MEDS: VANCOMYCIN 1,000 MG in NS 250 ML IV SCH (02:57)
[2019-03-25] MEDS: XOPENEX NEB INH SCH ×6 (03:44→22:53)
[2019-03-25 04:20] LABS: BLOOD TYPE ARTERIAL; SAMPLE BLOOD
[2019-03-25 04:21] LABS: ALLEN TEST YES; BE -1.1 mmoll (-3.0-3.0); METHB 1.1 % (0.0-1.5); MODALITY HIGH FLOW NASAL CAN; O2(CT) 15.5 mL/dL (15.0-23.0); O2HB 94.2 % (95.0-99.0); PCO2(98.6) 38 mmHg (35-45); PO2(98.6) 65 mmHg (60-100); SAO2 96.6 % (95.0-100.0); THB 11.7 g/dL (11.5-17.4)
[2019-03-25] MEDS: ZOSYN 2.25 GM in NS 50 ML IV SCH ×3 (04:51→20:51)
[2019-03-25 06:48] LABS: BASO# 0.01 X1000 (0.0-0.2); BASO% 0.1 % (0.0-0.8); EOS# 0.28 X1000 (0.0-0.7); EOS% 2.4 % (0.0-10.0); HEMATOCRIT 35.4 % (37.0-47.0); HEMOGLOBIN 11.7 g/dL (12.0-16.0); IMM GRAN# 0.07 X1000 (0.0-0.04); IMM GRAN% 0.6 % (0.0-0.5); LYMPH# 1.12 X1000 (1.2-3.4); LYMPH% 9.5 % (20.5-51.1); MCH 26.6 PG (27-31); MCHC 33.1 g/dL (33-37); MCV 80.5 FL (81-99); MONO# 0.79 X1000 (0.11-0.59); MONO% 6.7 % (1.7-9.3); MPV 10.5 FL (7.4-10.4); NEUT# 9.49 X1000 (1.4-6.5); NEUT% 80.7 % (42.2-75.2); PLT 160 X1000 (130-400); RDW 14.4 % (11.5-14.5); WBC 11.76 X1000 (4.8-10.8)
[2019-03-25 07:09] LABS: CALCIUM 7.5 mg/dL (8.8-10.2); CREATININE 1.3 mg/dL (0.5-0.9); POTASSIUM 3.4 mmol/L (3.5-5.1)
--- NOTE | 2019-03-25 13:51 | PROGRESS NOTE ---
DATE: 03/25/2019 SUBJECTIVE: A 23-year-old white female patient with history of cerebral palsy, history of in utero CVA, seizure. She was admitted with seizure with hypoxemia. The patient currently is being treated for possible aspiration pneumonia, hypoxemic respiratory failure. History part is limited. History gotten from admission history and physical and consultation notes. Clinically patient seems to be getting better. Her oxygen requirement is going down. No recent seizure. No high-grade fever or chills. The patient is getting IV Clinimix, IV antibiotics. The patient did have bowel movement today. OBJECTIVE: Vital signs: Noted blood pressure 113/89, pulse 108, respirations 24 and temperature 98.2 degrees. Neck: Neck is supple. No JVD. Lungs: Bilateral inspiratory crepitations. CVS: S1 and S2 heard. Abdomen: Soft, scaphoid. Bowel sounds present. Extremities: Patient does have contracture of both upper limbs. [employer] D[employer]ACH[employer] TENDER: Sleeping, but arousable. Uncooperative for detailed exam. LABORATORY DATA: Done today reveals WBC count 11.76, hemoglobin 11.7, hematocrit 35.4, platelet count was 160. Electrolytes: Potassium was 3.4. Her BUN was 39, creatinine 1.3. ASSESSMENT AND PLAN: The patient medical problems include: 1. Left upper and left lower lobe pneumonia secondary to aspiration. 2. Hypoxemia. 3. Respiratory failure. 4. Tachycardia. 5. Seizure disorder. 6. Cerebral palsy. PLAN: Labs and medication noted. The patient is on broad-spectrum antibiotics which will continue. We will repeat blood work in the morning. cc: MD Bernard Price MD
[2019-03-25] MEDS: PROTONIX IV SCH (20:51)
[2019-03-26] MEDS: NS IV SCH ×2 (00:09→12:08)
[2019-03-26] MEDS: CEREBYX IV SCH ×2 (00:09→12:08)
[2019-03-26] MEDS: CLINIMIX E 4.25%-5% SOLUTION 1,000 ML IV SCH ×2 (03:12→04:43)
[2019-03-26] MEDS: XOPENEX NEB INH SCH ×6 (03:17→23:42)
[2019-03-26 04:38] LABS: ALLEN TEST YES; BE -3.9 mmoll (-3.0-3.0); BLOOD TYPE ARTERIAL; HCO3-(ACT) 21.9 mmoll (20.0-26.0); METHB 1.1 % (0.0-1.5); O2(CT) 15.7 mL/dL (15.0-23.0); O2HB 96.2 % (95.0-99.0); PCO2(98.6) 40 mmHg (35-45); PO2(98.6) 93 mmHg (60-100); SAMPLE BLOOD; SAO2 98.4 % (95.0-100.0); THB 11.5 g/dL (11.5-17.4); pH(98.6) 7.34 (7.35-7.45)
[2019-03-26 04:39] LABS: MODALITY HIGH FLOW NASAL CAN
[2019-03-26] MEDS: ZOSYN 2.25 GM in NS 50 ML IV SCH ×3 (06:16→20:51)
[2019-03-26 06:18] LABS: BASO# 0.01 X1000 (0.0-0.2); BASO% 0.1 % (0.0-0.8); EOS# 0.11 X1000 (0.0-0.7); EOS% 1.6 % (0.0-10.0); HEMOGLOBIN 10.9 g/dL (12.0-16.0); IMM GRAN# 0.02 X1000 (0.0-0.04); IMM GRAN% 0.3 % (0.0-0.5); LYMPH# 1.36 X1000 (1.2-3.4); LYMPH% 19.6 % (20.5-51.1); MCH 26.4 PG (27-31); MCV 79.9 FL (81-99); MONO# 0.62 X1000 (0.11-0.59); MONO% 8.9 % (1.7-9.3); MPV 9.8 FL (7.4-10.4); NEUT# 4.81 X1000 (1.4-6.5); NEUT% 69.5 % (42.2-75.2); PLT 165 X1000 (130-400); RBC 4.13 XMIL (4.2-5.4); RDW 14.7 % (11.5-14.5); WBC 6.93 X1000 (4.8-10.8)
[2019-03-26 07:09] LABS: CALCIUM 7.8 mg/dL (8.8-10.2); CREATININE 2.3 mg/dL (0.5-0.9); POTASSIUM 4.4 mmol/L (3.5-5.1)
--- NOTE | 2019-03-26 07:15 | Diag Imaging Result Doc PS360 ---
CHEST-1 VIEW - 03/26/2019 INDICATION: SOB COMPARISON: 03/24/2019 FINDINGS: There is a right PICC line with the catheter tip in the SVC. Stable nasogastric tube in the stomach. There is slight improvement in the ill-defined interstitial infiltrates in the lung bases. Heart size remains normal. IMPRESSION: Good line and tube placement. Improvement in the faint interstitial infiltrates in the lung bases. Electronically signed by Isaac Mathis 03/26/2019 7:13 AM
[2019-03-26] MEDS ORDERED: DIPRIVAN 1% 1,000 MG/100 ML BOTTLE ONE (11:42)
[2019-03-26] MEDS: NS 1,000 ML IV SCH (12:00)
--- NOTE | 2019-03-26 12:07 | PROGRESS NOTE ---
DATE: 03/27/2019 SUBJECTIVE: Ms. Galdamez is doing fair. According to patient's parents she is making some urine. No high-grade fever or chills. The patient is tachycardic at times and also tachypneic. No nausea or vomiting. No high-grade fever or chills. The patient was tolerating Clinimix well. No seizure-type episode. OBJECTIVE: Her vital signs noted. Patient is tachycardic and tachypneic. Neck is supple. No JVD. Lungs: Few inspiratory crepitations. CVS: S1 and S2. Tachycardia. Abdomen: Soft, scaphoid. Bowel sounds present. Extremities no cyanosis, clubbing. Patient does have history of cerebral palsy and some atrophy both upper limbs and flexion contracture. LABORATORY STUDIES: Patient blood work done today. WBC count 6.93, hemoglobin 10.9, hematocrit 33, platelet count 165,000 blood gas pH 7.34, pCO2 was 40, PO2 93. Electrolytes done today: Sodium 135, potassium 4.4, BUN 82 creatinine 2.3. CBC results reviewed. Chest x-ray done today revealed improvement in the interstitial infiltrate in the lung base. PROBLEMS: Patient's problems includes deterioration of her renal function. I am going to discuss with Dr. Williamson. Meanwhile discussed with the pharmacist about her vancomycin and Zosyn and discussing they are going to adjust the dose. Vancomycin is on hold. I am going to stopped per Clinimix, started her on IV fluid. We will monitor input/ output chart. Her seizure medicine is not the issue. Continue rest of the medicine. Overall plan and prognosis discussed with the family they are in agreement. OTHER PROBLEMS: 1. Aspiration pneumonia. 2. History of cerebral palsy. 3. Acute renal failure. Could be due to acute tubular necrosis secondary to her infection versus medication use. cc: MD Bernard Price MD
[2019-03-26 15:32] LABS: URINE SOURCE CATH
[2019-03-26 15:34] LABS: BILIRUBIN URINE NEGATIVE (NEGATIVE); BLOOD URINE SMALL (NEGATIVE); COLOR STRAW; GLUCOSE URINE NEGATIVE (NEGATIVE); KETONE URINE TRACE mg/dL (NEGATIVE); LEUKOCYTES URINE NEGATIVE (NEGATIVE); NITRITE URINE NEGATIVE (NEGATIVE); PH URINE 6.5; PROTEIN URINE NEGATIVE (NEGATIVE); SP GRAVITY URINE 1.009; TURBIDITY URINE CLEAR (CLEAR); UROBILINOGEN URINE NORMAL (NORMAL)
[2019-03-26 15:35] LABS: UR EPITHELIAL CELLS <10 /HPF (<10); URINE BACTERIA NEGATIVE /HPF; URINE WBC <10 /HPF (<10)
--- NOTE | 2019-03-26 15:45 | Diag Imaging Result Doc PS360 ---
US RENAL 2 (RETROPER) COMPLETE - 03/26/2019 INDICATION: acute renal failure TECHNIQUE: COMPARISON: None FINDINGS: There is mild bilateral hydronephrosis. Renal sizes are normal. The right kidney measures 12.4 x 5.7 x 5.5 cm. The left kidney measures 11.2 x 5.3 x 4.4 cm. The urinary bladder is very distended. Bladder volume is about 840 cc. There is trace ascites in Morison's pouch. IMPRESSION: 1. Mild bilateral hydronephrosis. 2. Severe urinary bladder distention. 3. A Loo catheter may be helpful. 4. Trace ascites. Electronically signed by Isaac Mathis 03/26/2019 3:43 PM
[2019-03-26] MEDS: PROTONIX IV SCH (20:51)
[2019-03-27] MEDS: NS IV SCH ×2 (00:58→13:00)
[2019-03-27] MEDS: CEREBYX IV SCH ×2 (00:58→13:00)
[2019-03-27] MEDS: XOPENEX NEB INH SCH ×6 (03:31→23:19)
[2019-03-27 04:38] LABS: ALLEN TEST NO; BE 1.1 mmoll (-3.0-3.0); BLOOD TYPE ARTERIAL; HCO3-(ACT) 25.8 mmoll (20.0-26.0); METHB 0.7 % (0.0-1.5); MODALITY HIGH FLOW NASAL CAN; O2(CT) 16.8 mL/dL (15.0-23.0); PCO2(98.6) 37 mmHg (35-45); PO2(98.6) 81 mmHg (60-100); SAMPLE BLOOD; SAO2 97.8 % (95.0-100.0); THB 12.4 g/dL (11.5-17.4); pH(98.6) 7.44 (7.35-7.45)
[2019-03-27] MEDS: NS 1,000 ML IV SCH (04:47)
[2019-03-27] MEDS: ZOSYN 2.25 GM in NS 50 ML IV SCH ×3 (04:47→21:24)
[2019-03-27 06:43] LABS: BASO# 0.01 X1000 (0.0-0.2); BASO% 0.2 % (0.0-0.8); EOS# 0.11 X1000 (0.0-0.7); EOS% 2.7 % (0.0-10.0); HEMATOCRIT 30.8 % (37.0-47.0); HEMOGLOBIN 10.1 g/dL (12.0-16.0); LYMPH# 1.04 X1000 (1.2-3.4); LYMPH% 25.2 % (20.5-51.1); MCH 26.4 PG (27-31); MCHC 32.8 g/dL (33-37); MCV 80.6 FL (81-99); MONO# 0.46 X1000 (0.11-0.59); MONO% 11.2 % (1.7-9.3); NEUT% 60.7 % (42.2-75.2); PLT 167 X1000 (130-400); RBC 3.82 XMIL (4.2-5.4); RDW 14.8 % (11.5-14.5); WBC 4.12 X1000 (4.8-10.8)
[2019-03-27 08:59] LABS: AGAP 11; BUN 22 mg/dL (8-22); CHLORIDE 121 mmol/L (98-107); GLUCOSE 89 mg/dL (70-104); POTASSIUM 2.9 mmol/L (3.5-5.1); SODIUM 156 mmol/L (136-145); TCO2 24 mmol/L (25-35)
[2019-03-27 09:00] LABS: CALCIUM 8.1 mg/dL (8.8-10.2); COSMO 312; CREATININE 0.3 mg/dL (0.5-0.9)
[2019-03-27] MEDS ORDERED: POTASSIUM CHLORIDE 60 MEQ in NS 500 ML IV ONE (09:30)
[2019-03-27] MEDS: D5W 1,000 ML IV SCH (11:00)
[2019-03-27 11:05] LABS: URINE SOURCE CATH
[2019-03-27 11:09] LABS: UR EPITHELIAL CELLS <10 /HPF (<10); URINE BACTERIA NEGATIVE /HPF
--- NOTE | 2019-03-27 11:12 | NEPHROLOGY CONSULTATION ---
DATE: 03/26/2019 REASON FOR ADMISSION: Hypoxemia. REASON FOR CONSULT: Acute kidney injury. CONSULTING PHYSICIAN: Dr. Garrett Laird. HISTORY OF PRESENT ILLNESS: Ms Galdamez is a 23-year-old white female who has a history of severe cerebral palsy and schizencephaly. The patient has a history of in utero CVA documented by Dr. Gao. She has been followed in his practice and seen at [facility]. The patient has a baclofen pump, a history of seizure activity with good response to Valium p.o. Unfortunately, the night before patient was admitted, the patient had a seizure, was given Valium. The seizures had responded nicely, though the family felt that she had become hypoxic with questionable aspiration. The patient was brought to the emergency room. She was admitted to ICU due to her physical and mental status. It appears the mother had requested delay in regards with intubation. Dr. Vidal had been consulted. Continue to monitor and follow. The patient is now currently intubated secondary to hypoxia and increased work of breathing. She is followed by Dr. Bedoya and continues on her own home medications of Cerebyx. She had been given Keppra. The patient has an NG tube to low intermittent suction to prevent further aspiration. She does not open her eyes to verbal or tactile stimuli. Severe contractures of upper and lower extremities. Family is not available at the bedside at this time. PAST MEDICAL HISTORY: Dr. Gao has documented she has cerebral palsy with schizencephaly, in utero CVA. She is adopted at a young age. Chronic spasticity with contractures of arms, hands and minimally of the feet, severe speech impairment, seizure disorders, history of aspiration pneumonias. PAST SURGICAL HISTORY: She has a baclofen pump implantation to the right lower abdomen followed in [place]. She has hamstring and heel cord clipping surgeries for contractures of her legs. FAMILY HISTORY: Unknown. Patient is adopted. SOCIAL HISTORY: She lives with her adoptive parents who are extremely attentive. ALLERGIES: Listed as iodinated contrast oral and IV, lorazepam, morphine. HOME MEDICATIONS: Diazepam, lamotrigine, Depo Provera, diazepam, and Metolazone. REVIEW OF SYSTEMS: Unable to obtain. Most information from the chart. OBJECTIVE: Her most recent vital signs temperature 98.4 degrees blood pressure 104/80, heart rate is respirations. She is currently on 30% high air flow. She has had 1693 in 3750 out to Loo catheter. LABORATORY DATA: Sodium 156, potassium 2.9, chloride 121, CO2 24, BUN 22, creatinine 0.3, glucose 89, anion gap is 11. Her calcium is 8.1. White count 4.12, hemoglobin 10.1, hematocrit 30.8 with a platelet count of 167,000. ABGs pH 7.44, CO2 37, PO2 81, bicarb 25.8 on 30% high-flow aerosol. She has a renal ultrasound indicating the right kidney measuring 12.4, left of 11.2. The patient had obstructive uropathy, severe urinary bladder distention, bilateral hydronephrosis, trace ascites. PHYSICAL EXAMINATION: General: This is a 23-year-old white female. She is resting quietly in bed. She remains intubated for respiratory preservation. HEENT: She is mostly normocephalic, atraumatic. Conjunctiva is reactive. Unable to determine equality. Mucous membranes are dry. Oral ET tube remains in place. Neck: Slightly stiff. No JVD. Cardiovascular: She is regular rate and rhythm. S4 is present. Lungs: Clear to auscultation bilaterally. Equal excursion. Ventilatory support. Abdomen: Nondistended, nontender, baclofen pump in place right lower abdomen. Extremities: No tenderness noted. No edema. Neurological: As mentioned above. ASSESSMENT AND PLAN: 1. Acute kidney injury. This appears to be multifactorial. The patient had a vancomycin level yesterday of 56.6. She also appears to have obstructive bladder outlet that has improved with Loo catheter placement. BUN and creatinine are back to her normal baseline of 22 and 0.3. Urine output of 3750. 2. Electrolytes: Sodium is 156 with a potassium of 2.9. Her IV fluids have been changed to D5W at 75 mL an hour with a potassium supplement. Labs ordered in the a.m. 3. Acid-base balance. This is stable. 4. Anemia. This is close to target of 10.1. 5. Pneumonia. This is followed by primary care and pulmonology. 6. History of seizure activity. Followed by Dr. Bedoya and primary care I would like to thank you for allowing us to follow with this patient. Dictated by BRITTANEY See for Salomon Williamson MD Face to face encounter, data reviewed, discussed with Carlos Ratliff on 03/27/19. I agree with the above assessment and plan of care. cc: BRITTANEY See MD Stephen W. Harbin, MD MTDD
[2019-03-27 11:43] LABS: UR CREAT RANDOM 15.9 mg/dL (11-20); UR PROT RANDOM 31.1 mg/dL
[2019-03-27 12:13] LABS: BILIRUBIN URINE NEGATIVE (NEGATIVE); BLOOD URINE SMALL (NEGATIVE); COLOR YELLOW; GLUCOSE URINE NEGATIVE (NEGATIVE); KETONE URINE 60 mg/dL (NEGATIVE); LEUKOCYTES URINE NEGATIVE (NEGATIVE); NITRITE URINE NEGATIVE (NEGATIVE); PROTEIN URINE TRACE mg/dL (NEGATIVE); SP GRAVITY URINE 1.013; TURBIDITY URINE CLEAR (CLEAR); UROBILINOGEN URINE NORMAL (NORMAL)
[2019-03-27] MEDS: VANCOMYCIN 1,500 MG in NS 250 ML IV SCH (14:21)
--- NOTE | 2019-03-27 20:07 | PROGRESS NOTE ---
DATE: 03/27/2019 SUBJECTIVE: Patient remains in ICU. She is on 35% FiO2 nasal cannula high flow. Starting early during the morning hours, she became more responsive with her parents and she has been able to communicate with them rather well. An NG tube was able to be removed per Dr. Vidal's recommendation. She was able to eat some stew and has done rather well with that. OBJECTIVE: She is alert and looks about. Afebrile. Vital signs stable. Pulse 106. CV: RRR. Lungs: Mild rhonchi left upper lung field. Abdomen: Nontender and nondistended. Extremities: Muscular atrophy. Legs with no edema. She has a Loo catheter in place as she had urinary retention. Her creatinine had gone up, but she has had large volumes of urinary output since that was placed. Her creatinine had come down to 0.3. She has had some hypernatremia and some hypokalemia develop which have been repleted per the Nephrology staff. ASSESSMENT: 1. Respiratory failure, much improved. 2. Left pneumonia, aspiration variety. 3. Seizure disorder. 4. Cerebral palsy with schizencephaly. 5. Baclofen. Pump in place. 6. Urinary retention, improved with Loo catheter placement. 7. Electrolyte disturbance related to the urinary retention now being repleted. PLAN: Continue IV Zosyn. She is off vancomycin. Continue nebulizer treatment, oxygen supplementation, and oral intake as per Dr. Vidal. Continue to follow patient. Hopefully, we will be able to get her home this week if she continues to improve. Possibly change her from the IV fosphenytoin tomorrow back to her oral anticonvulsants. cc: Bernard Gao MD
[2019-03-27] MEDS: PROTONIX IV SCH (21:26)
[2019-03-27] MEDS: SODIUM CHLORIDE 0.9% INJ SCH (21:26)
--- NOTE | 2019-03-27 23:19 | PULMONOLOGY PROGRESS NOTE ---
DATE: 03/27/2019 SUBJECTIVE: The patient is more awake and alert. The patient's mother reports she is responding to her in her usual fashion. She did indicate to her mother that she is hungry. The patient did have acute worsening of her renal function this weekend, but it has improved with placement of Loo catheter, likely related to urinary retention. OBJECTIVE: Vital Signs: The patient has been afebrile for the last 24 hours. BP 119/82, heart rate 99, respiratory rate 24, oxygen saturation 100% on 35% FiO2. HEENT: Pupils are equal and reactive. Oropharynx appears clear. Neck: Supple. Chest: Reveals minimal crackles in the lung bases. Cardiac: S1-S2. Abdomen: Soft. Extremities: Are unchanged. LABORATORIES: Sodium 156, potassium 2.9, chloride 101, bicarbonate 24, BUN 22, creatinine 0.3. White blood count 4.12, hemoglobin 10.1, platelet count 167,000. Chest x-ray yesterday revealed improving infiltrates in the lung bases. IMPRESSION: A 23-year-old with 1. Aspiration pneumonia. 2. Seizure disorder. 3. Acute hypoxemic respiratory failure. 4. Schizencephalopathy with cerebral palsy. 5. Urinary retention with acute renal failure, improved following Loo catheter placement. PLAN: 1. Discontinue NG tube. 2. Attempt oral feedings per her primary caregiver. 3. Initiate free water for hypernatremia. 4. We will discontinue daily ABGs and order on an as-needed basis. cc: MD Bernard Adorno MD MTDD
[2019-03-28] MEDS: CEREBYX IV SCH ×3 (00:43→23:23)
[2019-03-28] MEDS: NS IV SCH ×3 (00:43→23:23)
[2019-03-28] MEDS: D5W 1,000 ML IV SCH ×2 (00:43→16:00)
[2019-03-28] MEDS: XOPENEX NEB INH SCH ×6 (03:26→23:51)
[2019-03-28] MEDS: ZOSYN 2.25 GM in NS 50 ML IV SCH ×3 (04:40→21:57)
[2019-03-28 07:12] LABS: AGAP 9; BUN 5 mg/dL (8-22); CALCIUM 7.7 mg/dL (8.8-10.2); CHLORIDE 107 mmol/L (98-107); COSMO 286; CREATININE 0.4 mg/dL (0.5-0.9); ESTIMATED GFR > 60; GLUCOSE 132 mg/dL (70-104); SODIUM 144 mmol/L (136-145); TCO2 28 mmol/L (25-35)
[2019-03-28 07:51] LABS: POTASSIUM 2.3 mmol/L (3.5-5.1)
[2019-03-28 07:54] LABS: BASO# 0.03 X1000 (0.0-0.2); BASO% 0.5 % (0.0-0.8); EOS# 0.19 X1000 (0.0-0.7); HEMATOCRIT 27.5 % (37.0-47.0); HEMOGLOBIN 8.9 g/dL (12.0-16.0); LYMPH# 2.05 X1000 (1.2-3.4); LYMPH% 32.4 % (20.5-51.1); MCH 26.3 PG (27-31); MCHC 32.4 g/dL (33-37); MCV 81.4 FL (81-99); MONO# 0.95 X1000 (0.11-0.59); NEUT# 3.11 X1000 (1.4-6.5); NEUT% 49.1 % (42.2-75.2); PLT 192 X1000 (130-400); RBC 3.38 XMIL (4.2-5.4); RDW 14.5 % (11.5-14.5); WBC 6.33 X1000 (4.8-10.8)
[2019-03-28] MEDS ORDERED: POTASSIUM CHLORIDE 60 MEQ in NS 500 ML IV ONE (08:00)
--- NOTE | 2019-03-28 08:23 | NEPHROLOGY PROGRESS NOTE ---
DATE: 03/28/2019 TIME SEEN: 0625 hours. SUBJECTIVE: Ms. Galdamez is resting in bed. She is more awake and alert. She is on BiPAP per nasal prong. She is nonverbal. OBJECTIVE: Vital Signs: Temperature 93 degrees, blood pressure 113/88, heart rate 79, respirations are 14. She is on the BiPAP at 35%. Last recorded saturation 97%. She has had 2740 in; 5 out to Loo catheter. General: On physical examination, this is a 23-year-old white female. She is currently resting quietly in bed. She remains on O2 support. Skin: Warm and dry. HEENT: Normocephalic, atraumatic. Conjunctiva is reactive. Unable to determine equality. Mucous membranes are dry. Neck: Supple. Trachea midline. No evidence of JVD. Cardiovascular: She is regular rate and rhythm. S4 is appreciated. Lungs: Clear to auscultation bilaterally. Equal excursion on O2 support. Abdomen: Nondistended, nontender. Baclofen pump in place to the right lower abdomen. Extremities: No tenderness present. No edema. Neurological: As above. LABS: Her sodium is 144, potassium is 2.3, chloride 107, CO2 is 28. BUN is 5, creatinine 0.4, glucose 132. Her anion gap is 9, calcium 7.7. White count 6.33, hemoglobin 8.9, hematocrit 27.5, with a platelet count of 192. PROBLEM LIST/AXIS III: 1. Acute kidney injury. This has resolved. More than likely acute tubular necrosis secondary bladder outlet obstruction and sepsis. BUN and creatinine are at her baseline of 5 and 0.4. Adequate urine output documented. 2. Electrolytes. Potassium is at 2.3. We will give a 60 mEq KCl rider at this time, and to be followed up by the primary care. PLAN: The patient's renal status has improved back to her baseline. Secondary to these findings, we will sign off and remain available if indicated. I would like to thank you for allowing us to follow with this patient. Dictated by BRITTANEY See for Salomon Williamson MD Face to face encounter, data reviewed, discussed with Carlos Ratliff on 03/28/19. I agree with the above assessment and plan of care. cc: BRITTANEY See MD Stephen W. Harbin, MD [facility] CENTERDanae
[2019-03-28] MEDS: PATIENT'S OWN MED PR PRN ×2 (08:45→15:30)
[2019-03-28] MEDS ORDERED: POTASSIUM CHLORIDE IV ONE ×2 (09:00→17:00)
[2019-03-28] MEDS ORDERED: 1/2 NS IV ONE ×2 (09:00→17:00)
--- NOTE | 2019-03-28 09:01 | PROGRESS NOTE ---
DATE: 03/28/2019 SUBJECTIVE: Patient remains in ICU. She is more alert and responsive to her parents. She is eating some and drinking very well. Overall, improved markedly. OBJECTIVE: Vital signs: Afebrile. Vital signs stable. Cardiovascular: Regular rate and rhythm. Lungs: Much improved. Maybe minimal crackle but much improved. Good air movement. Abdomen: Soft, nontender, nondistended. Extremities: No edema. Chronic contractures to the arms noted. Neurologic: She is alert, looking about and communicating with her parents at her baseline. LABORATORY DATA: White count 6.3, hemoglobin 8.9, platelets 192,000. This appears to be dilutional as she has received quite a bit of D5W and she is tolerating oral liquids well. Potassium is low at 2.3. Sodium 144, down from 156 yesterday. Chloride 107, CO2 28, BUN 5, creatinine 0.4, calcium 7.7. Loo catheter remains in place. ASSESSMENT: 1. Respiratory failure. Resolved. 2. Left pneumonia, aspiration variety. Improved. 3. Seizure disorder. 4. Cerebral palsy with schizencephaly. 5. Baclofen pump. 6. Urinary retention. Stable with Loo catheter. 7. Electrolyte disturbance with low potassium, now being repleted again with sodium normalized. PLAN: We will work, later this evening, if she does a little better with her eating, switching her over from fosphenytoin IV to her oral Lamictal. We will wait until this evening to see how she does with the oral first. Replete potassium by IV riders. Will likely transition her to oral antibiotics soon with possible discharge possible the day after tomorrow if she continues on her present course. cc: Bernard Gao MD
--- NOTE | 2019-03-28 10:01 | PROGRESS NOTE ---
DATE: 03/28/2019 LOCATION: ICU bed #1. SUBJECTIVE: Ms. Galdamez had some very brief and very light likely seizure activity. Mother reported this was typical of her prior episodes. She seemed stable after her typical nasal midazolam dose. She has started spotting, and family has noted increased tendency to seizure at those times. She may be due for her progesterone dose. I will defer that to Dr. Gao. I reviewed with parents the typical overlap when switching from one AED to another. She has tolerated fosphenytoin, and may be soon able to resume swallowing her lamotrigine dose. We discussed lamotrigine and phenytoin interaction. I would resume lamotrigine at the preadmission dose when she is swallowing consistently. She will continue nasal midazolam p.r.n. Thank you for asking Neurology to see Ms. Galdamez. cc: MD Bernard Avery III, MD [facility]
[2019-03-28] MEDS: VANCOMYCIN 1,500 MG in NS 250 ML IV SCH (15:00)
[2019-03-28] MEDS ORDERED: PATIENT'S OWN MED INH PRN (18:47)
--- NOTE | 2019-03-28 19:19 | PULMONOLOGY PROGRESS NOTE ---
DATE: 03/28/2019 SUBJECTIVE: The patient is awake and alert. Mother reports she has had difficulty with seizures today. She is tolerating some p.o. intake, but they are taking it very slow P. She has no increased work of breathing. OBJECTIVE: Vital Signs: The patient has been afebrile all day. Blood pressure 117/86, heart rate 29, oxygen saturation 98% on 35% FiO2. HEENT: Pupils are equal and reactive. Oropharynx appears clear. Neck is supple. Chest reveals scoliosis, but a breath sounds are relatively clear. Cardiac: Exam S1-S2. Abdomen: Soft extremities reveal significant muscle wasting. No significant edema. LABORATORIES: White blood count 6.33, hemoglobin 8.9, platelet 192,000. Sodium 6.33, hemoglobin 8.9. IMPRESSION: 23-year-old with shizencephalapathy and cerebral palsy, acute hypoxemic respiratory failure, aspiration pneumonia, ongoing seizures. Clinically, she appears to be doing well, but is having active seizures, which her mother reports is near her baseline. PLAN: 1. I agree with replacing electrolytes. We will check a magnesium and phosphorus in the morning. 2. Wean oxygen as tolerated. 3. We will obtain a chest x-ray in the morning. 4. Additional recommendations pending hospital course. cc: MD Bernard Adorno MD MTDD
[2019-03-28] MEDS: PROTONIX IV SCH (21:57)
[2019-03-28] MEDS: OFIRMEV 1000 MG/ISOTONIC SOLN 1,000 MG/100 ML BOTTLE IV PRN (23:00)
[2019-03-29] MEDS: XOPENEX NEB INH SCH ×6 (03:19→23:12)
[2019-03-29] MEDS ORDERED: SALINE LOCK IV FLUID XX ONE (03:57)
[2019-03-29] MEDS: ZOSYN 2.25 GM in NS 50 ML IV SCH ×3 (04:48→21:44)
[2019-03-29 05:20] LABS: BASO# 0.01 X1000 (0.0-0.2); BASO% 0.1 % (0.0-0.8); EOS# 0.13 X1000 (0.0-0.7); EOS% 1.8 % (0.0-10.0); HEMATOCRIT 27.8 % (37.0-47.0); HEMOGLOBIN 9.2 g/dL (12.0-16.0); IMM GRAN# 0.02 X1000 (0.0-0.04); IMM GRAN% 0.3 % (0.0-0.5); LYMPH# 1.98 X1000 (1.2-3.4); MCH 26.7 PG (27-31); MCHC 33.1 g/dL (33-37); MCV 80.6 FL (81-99); MONO# 0.96 X1000 (0.11-0.59); MONO% 13.6 % (1.7-9.3); MPV 9.4 FL (7.4-10.4); NEUT# 3.96 X1000 (1.4-6.5); NEUT% 56.2 % (42.2-75.2); PLT 254 X1000 (130-400); RBC 3.45 XMIL (4.2-5.4); RDW 14.3 % (11.5-14.5); WBC 7.06 X1000 (4.8-10.8)
[2019-03-29 05:41] LABS: AGAP 9; BUN 3 mg/dL (8-22); CALCIUM 7.4 mg/dL (8.8-10.2); CHLORIDE 107 mmol/L (98-107); COSMO 281; CREATININE 0.5 mg/dL (0.5-0.9); ESTIMATED GFR > 60; GLUCOSE 92 mg/dL (70-104); POTASSIUM 2.8 mmol/L (3.5-5.1); SODIUM 143 mmol/L (136-145); TCO2 27 mmol/L (25-35)
[2019-03-29 06:21] LABS: MAGNESIUM 1.2 mg/dL (1.5-2.7); PHOSPHORUS 1.8 mg/dL (2.7-4.5)
--- NOTE | 2019-03-29 06:32 | Diag Imaging Result Doc PS360 ---
CHEST-PORTABLE - 03/29/2019 INDICATION: abnormal exam COMPARISON: 03/26/2019 FINDINGS: The nasogastric tube has been removed. Stable right PICC line. There is worsening consolidation of the left lung base and probably a small pleural effusion as well. The right lung appears clear. IMPRESSION: Infiltrate and small effusion at the left lung base, worsened since prior. Electronically signed by Isaac Mathis 03/29/2019 6:30 AM
[2019-03-29] MEDS ORDERED: POTASSIUM CHLORIDE IV ONE (06:56)
[2019-03-29] MEDS ORDERED: 1/2 NS IV ONE (06:56)
[2019-03-29] MEDS ORDERED: POTASSIUM CHLORIDE IV SCH (07:15)
[2019-03-29] MEDS ORDERED: 1/2 NS IV SCH (07:15)
[2019-03-29] MEDS ORDERED: LASIX IV ONE (08:57)
--- NOTE | 2019-03-29 09:07 | PROGRESS NOTE ---
DATE: 03/29/2019 SUBJECTIVE: Patient remains in the ICU. She had four fairly light seizures yesterday, and it was thought that that it could possibly be related to hormonal trigger as she started spotting yesterday, and is due to her Depo-Provera so her Depo-Provera was given by her father with our consent. She has remained on the fosphenytoin IV at this point, and is starting to tolerate oral better overall. OBJECTIVE: T-max 100 degrees temporal, pulse 99, respirations 20, blood pressure 102/72, and O2 saturation on FiO2 30%. High-flow oxygen 96 to 100 percent CV: Regular rate and rhythm. Lungs: Fairly clear although x-ray looks a little worse on the left now, which may have been related to fluid. We stopped her IV fluids during the night. Abdomen: Nontender. Extremities: No edema. Skin: No major skin breakdown. Neurologic: Patient yesterday was alert. She is sleeping currently. I did not arouse her. LABORATORY: White count 7.06, hemoglobin 9.2, and platelets 254,000. Sodium 143, potassium 2.8, chloride 107, CO2 27, BUN 3, creatinine 0.5, glucose 92, calcium 7.4, magnesium 1.2, and phosphorus 1.8. Chest x-ray again shows some worsening of left lung base consolidation and small pleural effusion. ASSESSMENT: 1. Left pneumonia. 2. Seizure disorder. 3. Cerebral palsy with schizencephaly. 4. Baclofen pump. 5. Urinary retention stable with Loo catheter. 6. Electrolyte imbalance with low potassium, low magnesium, and low phosphorus. PLAN: Possibility of switching over from fosphenytoin back to her oral Lamictal. We will leave that to Dr. Bedoya's discretion during the day today. She will be due to the fosphenytoin IV at noon. We will replete her potassium, phosphorus and magnesium during the day today, and recheck those in the morning. Continue to try to work on her oral intake as her seizure activity allows. She had received the Depo-Provera injection yesterday, and she has p.r.n. Diastat and Versed ordered as needed for breakthrough seizures. Continue IV antibiotics both the Zosyn and vancomycin. Continue nebulizer treatments. Tomorrow if she does well, we will possibly try to discontinue her Loo catheter, but we will leave that in place today. Continue to monitor fluid status. She is off IV fluids at this time. We will work to get home oxygen set up if that is feasible. cc: Bernard Gao MD
[2019-03-29] MEDS ORDERED: POTASSIUM PHOSPHATE IV ONE (12:00)
[2019-03-29] MEDS ORDERED: NS IV ONE (12:00)
[2019-03-29] MEDS: NS IV SCH (12:20)
[2019-03-29] MEDS: CEREBYX IV SCH (12:20)
[2019-03-29] MEDS: VANCOMYCIN 1,500 MG in NS 250 ML IV SCH (14:05)
[2019-03-29] MEDS ORDERED: MAGNESIUM SULFATE 4 GM/S.W.I. 4 GM/100 ML IVPB IV ONE (16:00)
[2019-03-29] MEDS: PROTONIX IV SCH (21:44)
--- NOTE | 2019-03-30 00:19 | PULMONOLOGY PROGRESS NOTE ---
DATE: 03/29/2019 SUBJECTIVE: The patient is awake and alert. Mother reports she has not had any seizures today. X-ray looks slightly worse, but she does not appear to have increased work of breathing and she remains on 35% FiO2. OBJECTIVE: Vital Signs: The patient has been afebrile for the last 24 hours, but did have a temperature of 100 degrees at 7:40 this morning. BP 100/70, heart rate 101, respiratory rate 20, oxygen saturation 99%. HEENT: Pupils are equal and reactive. Oropharynx appears clear. Neck: Supple. Chest: Reveals occasional rhonchi bilaterally with significant scoliosis. Cardiac: S1, S2. Abdomen: Soft with positive bowel sounds. Extremities: Are without edema. LABORATORIES: White blood count 7.06, hemoglobin 9.2, platelet count 254,000. Sodium 143, potassium 2.8, chloride 107, bicarbonate 27, BUN 3, creatinine 0.5. Phosphorus 1.8, magnesium 1.2. Chest x-ray reveals slight increase in effusion and infiltrate at the left base. IMPRESSION: A 23-year-old with 1. Acute hypoxemic respiratory failure. 2. Schizencephaly. 3. Aspiration pneumonia. 4. Seizure disorder. 5. Hypoxemic respiratory failure, on 35% FiO2. PLAN: 1. Agree with magnesium replacement. 2. Single small dose of Lasix this morning. 3. Encourage weaning oxygen as tolerated. 4. Followup chest x-ray tomorrow. cc: MD Bernard Adorno MD
[2019-03-30] MEDS: CEREBYX IV SCH (00:59)
[2019-03-30] MEDS: NS IV SCH (00:59)
[2019-03-30] MEDS: XOPENEX NEB INH SCH ×6 (03:48→23:32)
[2019-03-30] MEDS: ZOSYN 2.25 GM in NS 50 ML IV SCH ×3 (04:33→22:21)
[2019-03-30] MEDS: OFIRMEV 1000 MG/ISOTONIC SOLN 1,000 MG/100 ML BOTTLE IV PRN ×2 (04:44→17:20)
[2019-03-30 05:50] LABS: BASO# 0.01 X1000 (0.0-0.2); BASO% 0.1 % (0.0-0.8); EOS# 0.27 X1000 (0.0-0.7); EOS% 2.6 % (0.0-10.0); HEMATOCRIT 30.1 % (37.0-47.0); IMM GRAN# 0.04 X1000 (0.0-0.04); IMM GRAN% 0.4 % (0.0-0.5); LYMPH# 2.09 X1000 (1.2-3.4); LYMPH% 20.4 % (20.5-51.1); MCH 26.3 PG (27-31); MCHC 33.2 g/dL (33-37); MCV 79.2 FL (81-99); MONO# 1.16 X1000 (0.11-0.59); MONO% 11.3 % (1.7-9.3); MPV 9.6 FL (7.4-10.4); NEUT% 65.2 % (42.2-75.2); PLT 334 X1000 (130-400); RDW 14.1 % (11.5-14.5); WBC 10.27 X1000 (4.8-10.8)
[2019-03-30 06:17] LABS: MAGNESIUM 3.3 mg/dL (1.5-2.7); PHOSPHORUS 2.8 mg/dL (2.7-4.5)
--- NOTE | 2019-03-30 07:14 | Diag Imaging Result Doc PS360 ---
EXAM: CHEST-PORTABLE 03/30/2019 HISTORY: abnormal exam TECHNIQUE: AP portable at 0512 COMMENT: Compared to the previous study of 03/29/2019 there is still a pleural effusion on the left but the left lung is slightly better expanded than it was previously. The right lung is stable in appearance. IMPRESSION: Improved atelectasis versus pneumonia left lower lobe. Electronically signed by Go Vega 03/30/2019 7:12 AM
--- NOTE | 2019-03-30 07:22 | Diag Imaging Result Doc PS360 ---
EXAM: KUB ABDOMEN 03/30/2019 HISTORY: fullness to abdomen TECHNIQUE: KUB COMMENT: There is diffuse colonic and small bowel gas. This is a nonspecific pattern. The stomach is not distended. There is no evidence organomegaly or mass. 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 There is severe scoliosis of the thoracolumbar spine with convexity to the left. There are no previous studies. There is what appears to be an epidural catheter and pump. IMPRESSION: Questionable ileus. Electronically signed by Go Vega 03/30/2019 7:20 AM
[2019-03-30 07:42] LABS: AGAP 13; BUN 6 mg/dL (8-22); CHLORIDE 105 mmol/L (98-107); COSMO 287; CREATININE 0.6 mg/dL (0.5-0.9); ESTIMATED GFR > 60; GLUCOSE 148 mg/dL (70-104); POTASSIUM 3.3 mmol/L (3.5-5.1); SODIUM 144 mmol/L (136-145); TCO2 26 mmol/L (25-35)
[2019-03-30 07:55] LABS: CALCIUM 6.9 mg/dL (8.8-10.2)
[2019-03-30] MEDS ORDERED: MIRALAX PO PRN ×2 (08:31→08:43)
[2019-03-30] MEDS ORDERED: POTASSIUM CHLORIDE 20% LIQUID PO ONE (08:32)
--- NOTE | 2019-03-30 10:15 | PROGRESS NOTE ---
DATE: 03/30/2019 SUBJECTIVE: Patient remains in ICU. She has been alert. She has been responsive to her parents. They have been feeding her, and she has been stooling about once a day, slightly smaller stools than she is accustomed to at home, but overall stooling. She has had no seizure activity in the past 24 hours. OBJECTIVE: Vital Signs: T-max 100.5 degrees, temperature current 98.9, pulse 95, respirations 15, blood pressure 94/65, O2 saturation on 2 L per nasal cannula non high-flow 99%. CV: RRR. Lungs: CTA. Abdomen: Nontender, nondistended. Active bowel sounds. Extremities: No edema. Contractures arms, chronic. Neurologic: She looks about and verbally responds yes on occasion to her family. LABS: White count 10, hemoglobin 10, platelets 334. Sodium 144, potassium 3.3, chloride 105, CO2 26. BUN 6, creatinine 0.6, glucose 148, calcium 6.9, phosphorus 2.8, magnesium 3.3. X-RAYS: Chest x-ray shows improved atelectasis versus pneumonia left lower lobe. Abdominal x-ray shows possible mild ileus. ASSESSMENT: 1. Left pneumonia, aspiration variety. 2. Seizure disorder. 3. Cerebral palsy with schizencephaly. 4. Baclofen pump. 5. Urinary retention, stable with Loo catheter. 6. Electrolyte imbalances with low potassium, low magnesium and phosphorus, improved. PLAN: Change from fosphenytoin back to her Lamictal. Her mother has chewable 25 mg pills on the Lamictal, so we will allow her to give her 300 mg p.o. q. 12 hours as she does at home. We will monitor her calcium. Will replete potassium with oral dose of liquid potassium. Continue Zosyn and vancomycin with plans to policy change clerk to oral Augmentin and doxycycline if she does well, unless she spikes a higher fever. Continue O2 at current low dose of 2 liters/minute, and will continue Xopenex nebulizer treatments. We will add p.r.n. MiraLAX. Will bladder train and DC Loo. I spoke with Dr. Vidal and he is in agreement with plans of possible discharge tomorrow if her fever stays acceptable. cc: Bernard Gao MD
[2019-03-30] MEDS: PATIENT'S OWN MED PO SCH (11:00)
--- NOTE | 2019-03-30 11:00 | PROGRESS NOTE ---
DATE: 03/30/2019 SUBJECTIVE: Ms. Galdamez has not had another clinically recognized seizure. Fosphenytoin has been stopped. Plan is to resume lamotrigine 300 mg p.o. b.i.d. now. Her lamotrigine level was 15.5 shortly after admission. That is near the upper limit of usual therapeutic range. I discussed the possibility that she might have lamotrigine toxicity with parents at the bedside and that might become apparent more slowly and later since phenytoin is present. PLAN: I think we should resume the preadmission lamotrigine 300 mg b.i.d. dose, follow clinically, consider checking lamotrigine serum level again later, after phenytoin is no longer present. Thanks for asking Neurology to see Ms. Galdamez. cc: MD Bernard Avery III, MD MTDD
[2019-03-30] MEDS: VANCOMYCIN 1,500 MG in NS 250 ML IV SCH ×2 (15:11→15:12)
[2019-03-30] MEDS: VANCOMYCIN 1,250 MG in NS 250 ML IV SCH (17:20)
--- NOTE | 2019-03-30 20:44 | PULMONOLOGY PROGRESS NOTE ---
DATE: 03/30/2019 SUBJECTIVE: The patient is sleeping but arousable. She appears to be comfortable. She is now on nasal cannula. OBJECTIVE: Vital signs: Blood pressure 99/69, heart rate 99, respiratory rate 17, oxygen saturation 98% on 3 L per nasal cannula. HEENT: Pupils are equal and reactive. Oropharynx appears clear. Neck: Supple. Chest: Reveals minimal crackles in the lung bases. Cardiac exam: S1-S2 Abdomen: Soft with mild tympany. Extremities: Without edema. LABORATORIES: Chest x-ray reveals better expansion with some decreased atelectasis at the left base. Small effusion still present. White blood count 10.27, hemoglobin 10.0, platelet count 334,000. Sodium 144, potassium 3.3, chloride 105, bicarbonate 26, BUN 6, creatinine 0.6, phosphorus 2.8, magnesium 3.3. IMPRESSION: A 23-year-old with: 1. Acute hypoxemic respiratory failure which is resolving. 2. Aspiration pneumonia which is resolving. 3. Schizencephalopathy. 4. Seizure disorder. PLAN: 1. Agree with transition to oral antibiotics. 2. Wean oxygen as tolerated. 3. Anticipate discharge soon. cc: MD Bernard Adorno MD MTDD
[2019-03-30] MEDS: PROTONIX IV SCH (22:20)
[2019-03-31] MEDS: OFIRMEV 1000 MG/ISOTONIC SOLN 1,000 MG/100 ML BOTTLE IV PRN (01:01)
[2019-03-31] MEDS: XOPENEX NEB INH SCH ×4 (03:37→16:12)
[2019-03-31] MEDS: ZOSYN 2.25 GM in NS 50 ML IV SCH ×2 (04:16→13:10)
[2019-03-31 05:46] LABS: HEMATOCRIT 27.2 % (37.0-47.0); HEMOGLOBIN 8.9 g/dL (12.0-16.0); LYMPH% 25.6 % (20.5-51.1); MCH 26.2 PG (27-31); MCHC 32.7 g/dL (33-37); MONO% 11.2 % (1.7-9.3); MPV 9.8 FL (7.4-10.4); NEUT% 57.8 % (42.2-75.2); PLT 380 X1000 (130-400); RDW 14.3 % (11.5-14.5); WBC 11.67 X1000 (4.8-10.8)
[2019-03-31 05:47] LABS: BASO# 0.02 X1000 (0.0-0.2); BASO% 0.2 % (0.0-0.8); EOS# 0.56 X1000 (0.0-0.7); EOS% 4.8 % (0.0-10.0); IMM GRAN# 0.05 X1000 (0.0-0.04); IMM GRAN% 0.4 % (0.0-0.5); LYMPH# 2.99 X1000 (1.2-3.4); MONO# 1.31 X1000 (0.11-0.59); NEUT# 6.74 X1000 (1.4-6.5)
[2019-03-31 06:16] LABS: AGAP 11; BUN 12 mg/dL (8-22); CALCIUM 7.9 mg/dL (8.8-10.2); CHLORIDE 104 mmol/L (98-107); COSMO 277; CREATININE 1.1 mg/dL (0.5-0.9); ESTIMATED GFR > 60; GLUCOSE 94 mg/dL (70-104); POTASSIUM 4.2 mmol/L (3.5-5.1); SODIUM 139 mmol/L (136-145); TCO2 24 mmol/L (25-35)
[2019-03-31 09:10] LABS: URINE SOURCE CATH
[2019-03-31 09:12] LABS: BILIRUBIN URINE NEGATIVE (NEGATIVE); BLOOD URINE NEGATIVE (NEGATIVE); COLOR YELLOW; GLUCOSE URINE NEGATIVE (NEGATIVE); KETONE URINE NEGATIVE (NEGATIVE); SP GRAVITY URINE 1.013; TURBIDITY URINE CLEAR (CLEAR); UR EPITHELIAL CELLS <10 /HPF (<10); URINE BACTERIA NEGATIVE /HPF; URINE RBC <10 /HPF (<10); URINE WBC <10 /HPF (<10)
[2019-03-31 09:13] LABS: LEUKOCYTES URINE NEGATIVE (NEGATIVE); NITRITE URINE NEGATIVE (NEGATIVE); PROTEIN URINE TRACE mg/dL (NEGATIVE); UROBILINOGEN URINE NORMAL (NORMAL)
--- NOTE | 2019-03-31 10:43 | PROGRESS NOTE ---
DATE: 03/31/2019 SUBJECTIVE: Ms. Galdamez has not had seizure recognized by staff or family. She has become much more alert and attentive. Mother reports she seems just about back to her baseline. She has been off phenytoin for about a day and a half, and has been getting her preadmission lamotrigine 300 mg p.o. b.i.d., mother providing that with bites of frosting. She has swallowed consistently well. I do not have any new suggestions from Neurology standpoint. I hope she will continue to do well and be home soon, and then have her usual follow-up at [facility]. Thanks for asking Neurology to see her here. cc: MD Bernard Avery III, MD
[2019-03-31] MEDS: PATIENT'S OWN MED PO SCH ×2 (13:00)
--- NOTE | 2019-03-31 15:04 | PULMONOLOGY PROGRESS NOTE ---
DATE: 03/31/2019 SUBJECTIVE: The patient is awake and alert. The patient could not void and had to have a Loo catheter reinserted. She has no increased work of breathing. She has been transitioned to room air. OBJECTIVE: Vital Signs: Maximum temperature in the last 24 hours 100.9 degrees. Blood pressure 120/84, heart rate 117, respiratory rate 24, oxygen saturation 100% on room air. HEENT: Pupils are equal and reactive. Oropharynx appears clear. Neck: Supple. Chest: Reveals good air entry bilaterally with clear breath sounds. Cardiovascular: Cardiac exam increased rate, regular rhythm. Abdomen: Soft. Extremities: Without edema. IMPRESSION: 23-year-old with: 1. Acute hypoxemic respiratory failure. 2. Aspiration pneumonia. 3. Cerebral palsy secondary to schizencephaly. 4. Seizure disorder. PLAN: 1. Agree with oral antibiotics. 2. Loo catheter as per above. The patient may need either a suprapubic catheter or may need in and out catheterization. I believe her mother can be taught to perform in and out catheterization. 3. Anticipate discharge home. cc: MD Bernard Adorno MD
[2019-03-31 16:20] VITALS: BP 112/54
--- NOTE | 2019-03-31 17:41 | PROGRESS NOTE ---
DATE: 03/31/2019 SUBJECTIVE: The patient is alert and responds well with her to her parents, and they can understand her desires and they communicate well with one another. Loo catheter had to be replaced early this morning due to recurrent urinary retention. OBJECTIVE: Temperature maximum 100.9 degrees, temperature current 99.7, pulse 120s, respirations 23, blood pressure 112/54, O2 saturation on room air 95%.Cardiovascular: Tachycardia, regular rhythm. Lungs: Mild crackles, left lung field. Abdomen: Nondistended. Stooling well. Extremities: No edema. No skin breakdown. Neurologic: Patient at her baseline. DIAGNOSTIC STUDIES: White count 11.6, hemoglobin 8.9, platelets 380,000. Sodium 139, potassium 4.2, chloride 104, CO2 of 24, BUN 12, creatinine 1.1, glucose 94, calcium 7.9. ASSESSMENT: 1. Left pneumonia, aspiration variety, improved, but not well. 2. Seizure disorder. 3. Cerebral palsy with schizencephaly. 4. Baclofen pump. 5. Urinary retention, now with Loo catheter with failed attempt at removing that earlier. 6. Electrolyte imbalances, resolved. PLAN: Discharge patient home on oral Augmentin ES and oral Bactrim suspension for 10 more days. Continue home medications of Lamictal, MiraLAX p.r.n. at home. She does not require oxygen, and I will leave her off the Xopenex at this point. We will leave the Loo catheter in place, and she will follow up in my office in about 10 days ago. The PICC line was removed prior to discharge. cc: Bernard Gao MD
[2019-03-31] MEDS: VANCOMYCIN 1,250 MG in NS 250 ML IV SCH (18:09)
== END 2019-03-31 19:06 | disposition home or self-care (01) | DRG 177 ==
LOC: ED 05:53 → 3N 05:54 → ICU 11:43
PROVIDERS: ADMIT Family Medicine; ATTEND Family Medicine